=== PATIENT | female | born 1990 | race Caucasian/White ===

== ENCOUNTER 2017-03-03 10:00 | Emergency (ER) | payer OTHER ==
[2017-03-03 10:05] VITALS: BP 116/70; PULSE 63; RESP 18; TEMP 97.9
--- NOTE | 2017-03-03 10:46 | ED ---
General Adult HPI - General Chief complaint: Back Pain/Injury Stated complaint: BACK PAIN, CHRONIC Time Seen by Provider: 03/03/17 10:20 Source: patient, RN notes reviewed Mode of arrival: ambulatory Limitations: no limitations - History of Present Illness Initial comments: Patient is a 26-year-old female who presents emergency room today with chief complaint of exacerbation of chronic low back pain. She does admit that she was playing soccer and also cut the grass a few days ago. She states she is unsure if this causing exacerbation. She states she feels pain in her lower back both on left right sides. Does admit to some pain that radiates down the right leg. Denies any bowel or bladder incontinence or retention. Denies any saddle anesthesia. Denies any other complaints associated symptoms. Patient denies any recent fever, chills, shortness of breath, chest pain,abdominal pain , nausea or vomiting, dysuria or hematuria, constipation or diarrhea, headaches or visual changes, or any other complaints. - Related Data Home Medications Medication Instructions Recorded Confirmed Albuterol Inhaler [Ventolin Hfa 2 puff INHALATION QID 08/24/16 08/24/16 Inhaler] Albuterol Nebulized [Ventolin 1 unit INHALATION DIRECTED 08/24/16 08/24/16 Nebulized] Previous Rx's Medication Instructions Recorded HYDROcodone/APAP 5-325MG [Alexander 1 tab PO Q6HR #20 tab 10/04/16 5-325] methylPREDNISolone [Medrol Dose 4 mg PO DIRECTED #1 pack 10/04/16 Pack] Azithromycin [Zithromax Z-pack] 250 mg PO DIRECTED #6 tab 10/21/16 predniSONE 20 mg PO DAILY #3 tab 10/21/16 Cyclobenzaprine [Flexeril] 10 mg PO TID #20 tab 03/03/17 Allergies Allergy/AdvReac Type Severity Reaction Status Date / Time No Known Allergies Allergy Verified 03/03/17 10:05 Review of Systems ROS Statement: Those systems with pertinent positive or pertinent negative responses have been documented in the HPI. ROS Other: All systems not noted in ROS Statement are negative. Past Medical History Past Medical History: Asthma Additional Past Medical History / Comment(s): chronic back pain History of Any Multi-Drug Resistant Organisms: None Reported Past Surgical History: No Surgical Hx Reported Additional Past Surgical History / Comment(s): wisdom teeth Past Psychological History: ADD/ADHD Smoking Status: Current every day smoker Past Alcohol Use History: Occasional Past Drug Use History: None Reported General Exam - General Exam Comments Initial Comments: General: The patient is awake and alert, in no distress, and does not appear acutely ill. Eye: Pupils are equal, round and reactive to light, extra-ocular movements are intact. No nystagmus. There is normal conjunctiva bilaterally. No signs of icterus. Ears, nose, mouth and throat: There are moist mucous membranes and no oral lesions. Neck: The neck is supple, there is no tenderness or JVD. Cardiovascular: There is a regular rate and rhythm. No murmur, rub or gallop is appreciated. Respiratory: Lungs are clear to auscultation, respirations are non-labored, breath sounds are equal. No wheezes, stridor, rales, or rhonchi. Musculoskeletal: He has a normal appearance of the thoracic, lumbar spine. Patient does have tenderness lower lumbar L4-L5. Increased paravertebral tenderness on left and right of the lower lumbar. Strength 5/5. Sensation intact. Pulses equal bilaterally 2+. Neurological: A&O x 3. CN II-XII intact, There are no obvious motor or sensory deficits. Coordination appears grossly intact. Speech is normal. Skin: Skin is warm and dry and no rashes or lesions are noted. Psychiatric: Cooperative, appropriate mood & affect, normal judgment. Limitations: no limitations Course Vital Signs 03/03/17 10:02 Temperature 97.9 F Pulse Rate 63 Respiratory 18 Rate Blood Pressure 116/70 O2 Sat by Pulse 100 Oximetry Medical Decision Making - Medical Decision Making Patient will be treated with anti-inflammatories and muscle relaxant. Patient advised to follow-up family doctor return if symptoms increase or worsen or for any other concerns. Disposition Clinical Impression: Acute exacerbation of chronic low back pain Disposition: HOME SELF-CARE Condition: Good Instructions: Chronic Back Pain (ED) Additional Instructions: Please use medication as discussed. Please follow-up with family doctor in the next 2 days of symptoms have not improved. Please return to emergency room if the symptoms increase or worsen or for any other concerns. Prescriptions: Cyclobenzaprine [Flexeril] 10 mg PO TID #20 tab Referrals: None,Stated [Primary Care Provider] - 1-2 days Derek Cho DO [STAFF PHYSICIAN] - 1-2 days Shukri Villanueva DO [Doctor of Osteopathic Medicine] - 1-2 days Time of Disposition: 10:45
== END 2017-03-03 10:56 | disposition home or self-care (01) ==
LOC: EC 10:00
DX: G89.29 Other chronic pain (principal); M54.5 Low back pain; J45.909 Unspecified asthma, uncomplicated; F17.200 Nicotine dependence, unspecified, uncomplicated; Z79.899 Other long term (current) drug therapy
CPT/HCPCS: 99283

== ENCOUNTER 2017-08-21 11:18 | Emergency (ER) | payer OTHER ==
[2017-08-21 11:41] VITALS: BP 116/72; RESP 18; TEMP 99.4
[2017-08-21] MEDS ORDERED: IPRATROPIUM-ALBUTEROL 3 ML NEB INHALATION STA (11:56)
--- NOTE | 2017-08-21 11:58 | ED ---
URI HPI - General Chief Complaint: Upper Respiratory Infection Stated Complaint: bronchitis Time Seen by Provider: 08/21/17 11:41 Source: patient, RN notes reviewed Mode of arrival: ambulatory Limitations: no limitations - History of Present Illness Initial Comments: 27-year-old female presents emergency Department chief complaint of cough congestion as for 5 days. Patient states cough is productive at time. Patient states she has been wheezing. Patient has a history of asthma. Patient states that she does not have an inhaler or nebulizer currently. She states she is due for another nebulizer. Patient denies any fever or chills. Denies any nausea vomiting diarrhea constipation or diarrhea Patient states she does have slight running nose, sore throat and ear pain. - Related Data Home Medications Medication Instructions Recorded Confirmed Albuterol Inhaler [Ventolin Hfa 2 puff INHALATION RT-QID PRN 08/24/16 03/03/17 Inhaler] Albuterol Nebulized [Ventolin 2.5 unit INHALATION RT-QID PRN 08/24/16 03/03/17 Nebulized] Previous Rx's Medication Instructions Recorded Cyclobenzaprine [Flexeril] 10 mg PO TID #20 tab 03/03/17 Albuterol Nebulized [Ventolin 2.5 mg INHALATION Q4H PRN #25 nebu 08/21/17 Nebulized] Albuterol Sulfate [Proair Hfa] 1 - 2 puff INHALATION Q4HR PRN #1 08/21/17 inhaler Azithromycin [Zithromax Z-pack] 0 mg PO DIRECTED #1 pack 08/21/17 Allergies Allergy/AdvReac Type Severity Reaction Status Date / Time No Known Allergies Allergy Verified 03/03/17 10:05 Review of Systems ROS Statement: Those systems with pertinent positive or pertinent negative responses have been documented in the HPI. ROS Other: All systems not noted in ROS Statement are negative. Past Medical History Past Medical History: Asthma Additional Past Medical History / Comment(s): chronic back pain History of Any Multi-Drug Resistant Organisms: None Reported Past Surgical History: No Surgical Hx Reported Additional Past Surgical History / Comment(s): wisdom teeth Past Psychological History: ADD/ADHD Smoking Status: Current every day smoker Past Alcohol Use History: Occasional Past Drug Use History: None Reported General Exam Limitations: no limitations General appearance: alert, in no apparent distress Head exam: Present: atraumatic, normocephalic, normal inspection Eye exam: Present: normal appearance, PERRL, EOMI. Absent: scleral icterus, conjunctival injection, periorbital swelling ENT exam: Present: normal exam, normal oropharynx, mucous membranes moist, TM's normal bilaterally, normal external ear exam Neck exam: Present: normal inspection, full ROM. Absent: tenderness, meningismus, lymphadenopathy Respiratory exam: Present: wheezes. Absent: normal lung sounds bilaterally, respiratory distress, rales, rhonchi, stridor Cardiovascular Exam: Present: regular rate, normal rhythm, normal heart sounds. Absent: systolic murmur, diastolic murmur, rubs, gallop, clicks Neurological exam: Present: alert, oriented X3, CN II-XII intact, reflexes normal. Absent: motor sensory deficit Skin exam: Present: warm, dry, intact, normal color. Absent: rash Course Vital Signs 08/21/17 11:38 Temperature 99.4 F Pulse Rate 67 Respiratory 18 Rate Blood Pressure 116/72 O2 Sat by Pulse 100 Oximetry Medical Decision Making - Medical Decision Making 27-year-old female presents for cough congestion. Patient's x-ray does not show an acute abnormality. Patient's history asthma. 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 Patient will be given albuterol. Patient will be advised follow-up with PCP and return parameters were discussed. Disposition Clinical Impression: Asthmatic bronchitis Disposition: HOME SELF-CARE Condition: Stable Instructions: Upper Respiratory Infection (ED) Additional Instructions: Please return to the Emergency Department if symptoms worsen or any other concerns. Prescriptions: Albuterol Nebulized [Ventolin Nebulized] 2.5 mg INHALATION Q4H PRN #25 nebu PRN Reason: difficulty in breathing Albuterol Sulfate [Proair Hfa] 1 - 2 puff INHALATION Q4HR PRN #1 inhaler PRN Reason: difficulty in breathing Azithromycin [Zithromax Z-pack] 0 mg PO DIRECTED #1 pack Referrals: None,Stated [Primary Care Provider] - 1-2 days Uzma Henderson MD [STAFF PHYSICIAN] - 1-2 days Time of Disposition: 12:19
--- NOTE | 2017-08-21 12:16 | XR ---
EXAMINATION TYPE: XR chest 2V DATE OF EXAM: 08/21/2017 COMPARISON: Prior chest x-ray 08/24/2016 HISTORY: Cough and pain TECHNIQUE: Frontal and lateral views of the chest are obtained. FINDINGS: There is no focal air space opacity, pleural effusion, or pneumothorax seen. The cardiac silhouette size is within normal limits. The osseous structures are intact. IMPRESSION: No acute cardiopulmonary process.
[2017-08-21 12:38] VITALS: PULSE 68
== END 2017-08-21 12:46 | disposition home or self-care (01) ==
LOC: EC 11:18
DX: J45.909 Unspecified asthma, uncomplicated (principal); F17.200 Nicotine dependence, unspecified, uncomplicated
CPT/HCPCS: 71020; 94640; 99283

== ENCOUNTER → 2018-01-21 | Outpatient (CLI) | payer OTHER ==
--- NOTE | 2018-01-21 10:16 | MR ---
EXAMINATION TYPE: MR lumbar spine wo con DATE OF EXAM: 01/21/2018 COMPARISON: 10/04/2016 HISTORY: Radiculopathy, lumbar region TECHNIQUE: Multiplanar, multisequence images of the lumbar spine were acquired. FINDINGS: There is redemonstration of a grade 4 anterolisthesis of L5 on S1 with resultant disc uncov ering and type II Modic changes throughout the L5 vertebrae and S1 endplate. Disc desiccation is also seen at L4-L5 and T12-L1 with small Schmorl's node of the superior endplate of L1. T2 and T1 hyperin tense probable vertebral body hemangioma seen of the posterior aspect of the superior endplate of L4. Remaining bone marrow signal is unremarkable. Remainder of the lumbar vertebral body heights maintai n alignment. Vertebral body heights are maintained. T12-L1: There is disc desiccation and a small broad-based disc bulge without significant neural dov inal narrowing or spinal canal stenosis. L1-L2: Normal disc appearance without desiccation. No herniation, protrusion or disc bulging. No ca nal stenosis is present. Foramina are patent bilaterally. L2-L3: Normal disc appearance without desiccation. No herniation, protrusion or disc bulging. No ca nal stenosis is present. Foramina are patent bilaterally. L3-L4: There is flattening of the disc usual concavity posteriorly representing a small broad-based d isc bulge. No spinal canal stenosis or neural foraminal narrowing. L4-L5: Focal central disc herniation is small superimposed upon a broad-based disc bulge with central annular tear and disc desiccation. Facet arthropathy is also seen at this level without spinal canal stenosis or neuroforaminal narrowing. L5-S1: There is widening of the spinal canal in anterior posterior direction due to the extensive gra de 4 anterolisthesis of L5 on S1. Disc uncovering is again seen with right lateral disc herniation. N eural foramen display severe stenosis due to the anterolisthesis. IMPRESSION: 1. Grade 4 anterolisthesis of L5 on S1 resulting in disc uncovering, a right lateral disc herniation, and severe neural foraminal stenosis impinging on the L5 nerve roots. 2. Small focal disc herniation at L4-L5 without significant spinal canal stenosis or neural foraminal narrowing. 3. Degenerative disc disease resulting in small broad-based disc bulges at T12-L1 and L3-L4 without f ocal herniation, spinal canal stenosis or neural foraminal narrowing.
== END | disposition home or self-care (01) ==
LOC: RADMRIMAIN 09:05
PROVIDERS: ATTEND Family Medicine
DX: M43.17 Spondylolisthesis, lumbosacral region (principal); M51.15 Intervertebral disc disorders with radiculopathy, thoracolumbar region; M99.73 Connective tissue and disc stenosis of intervertebral foramina of lumbar region
CPT/HCPCS: 72148

== ENCOUNTER 2018-08-01 12:56 | Emergency (ER) | payer OTHER ==
[2018-08-01 12:59] VITALS: BP 121/79; PULSE 68; RESP 20; TEMP 97.9
[2018-08-01] MEDS ORDERED: HYDROcodone/APAP 5-325MG 1 EACH TAB PO STA (13:34)
--- NOTE | 2018-08-01 13:45 | ED ---
Back Pain HPI - General Chief Complaint: Back Pain/Injury Stated Complaint: Lumbar Pain Time Seen by Provider: 08/01/18 13:17 Source: patient Limitations: no limitations - History of Present Illness Initial Comments: This a 28-year-old female with past medical history of chronic low back pain with spondylolisthesis of L5-S1 who follows Dr. Crowe. Patient has a scheduled appointment for discussion of surgery 08/10/2018 patient presents today for chief complaint of low back pain 1 day. Patient states that she woke up this morning with increased low back pain from her baseline. Patient states that feels like her chronic low back pain is localized to the lumbar spine that increases when sitting in chair and relieved with bending forward. However is just increased from her baseline and she has no pain medications at home. Pt neither extremity weakness, loss sensation of the lower extremities or the inner thighs, loss of bowel bladder control, urinary retention, fever, chills, night sweats, recent weight loss or IV drug use, or recent trauma/fall to the lumbar spine. Patient states that she has taken ibuprofen for pain, and that [employer] has worked in the past. Remainder of our was negative. Upon arrival patient's vital signs stable patient appears comfortable, ambulating without difficulty. - Related Data Previous Rx's Medication Instructions Recorded Albuterol Nebulized [Ventolin 2.5 mg INHALATION Q4H PRN #25 nebu 08/21/17 Nebulized] Albuterol Sulfate [Proair Hfa] 1 - 2 puff INHALATION Q4HR PRN #1 08/21/17 inhaler Azithromycin [Zithromax Z-pack] 0 mg PO DIRECTED #1 pack 08/21/17 Ibuprofen [Motrin] 800 mg PO Q8H PRN 7 Days #21 tab 08/01/18 Allergies Allergy/AdvReac Type Severity Reaction Status Date / Time No Known Allergies Allergy Verified 08/01/18 12:59 Review of Systems ROS Statement: Those systems with pertinent positive or pertinent negative responses have been documented in the HPI. ROS Other: All systems not noted in ROS Statement are negative. Constitutional: Denies: fever, chills, night sweats Eyes: Denies: vision change ENT: Denies: ear pain, throat pain Respiratory: Denies: cough, dyspnea, wheezes, hemoptysis, stridor Cardiovascular: Denies: chest pain, palpitations Gastrointestinal: Denies: abdominal pain, nausea, vomiting, diarrhea, constipation, hematemesis, melena Genitourinary: Denies: urgency, dysuria, frequency, hematuria Musculoskeletal: Reports: back pain. Denies: joint swelling, arthralgia Skin: Denies: rash, lesions Neurological: Denies: headache, weakness, numbness, paresthesias, confusion Past Medical History Past Medical History: Asthma Additional Past Medical History / Comment(s): chronic back pain History of Any Multi-Drug Resistant Organisms: None Reported Past Surgical History: No Surgical Hx Reported Additional Past Surgical History / Comment(s): wisdom teeth Past Psychological History: ADD/ADHD Smoking Status: Current every day smoker Past Alcohol Use History: Occasional Past Drug Use History: None Reported General Exam - General Exam Comments Initial Comments: General: The patient is awake and alert, in no distress, and does not appear acutely ill. Eye: Pupils are equal, round and reactive to light, extra-ocular movements are intact. No nystagmus. There is normal conjunctiva. No signs of icterus. Ears, nose, mouth and throat: There are moist mucous membranes and no oral lesions. Neck: The neck is supple, there is no tenderness or JVD. Cardiovascular: There is a regular rate and rhythm. No murmur, rub or gallop is appreciated. Respiratory: Lungs are clear to auscultation, respirations are non-labored, breath sounds are equal. No wheezes, stridor, rales, or rhonchi. Abdomen is ALLERGY related and she is normal feeling after getting the world's sign there is normal. Axillary she's been Abdomen Musculoskeletal: Full ROM of the lumbar spine with for flexion, hyperextension , lateral flexion and rotation, patient admits to increased pain with range of motion with hyperextension. Strength 5/5 at the hip, knees and ankles b/l. Sensation intact of the LE equally b/l including no saddle paresthesias. +2/5 DTR no myoclonus or fasiculations. DP pulses equal bilaterally 2+. Pt admits to pain midline to palpation of the lumbar spine as well as paravertebral tenderness to palpation. Pt can heel and toe walk without difficulty. (-) SLR b/ l Neurological: A&O x 3. CN II-XII intact, There are no obvious motor or sensory deficits. Coordination appears grossly intact. Speech is normal. Skin: Skin is warm and dry and no rashes or lesions are noted. Psychiatric: Cooperative, appropriate mood & affect, normal judgment. Limitations: no limitations Course Vital Signs 08/01/18 12:58 Temperature 97.9 F Pulse Rate 68 Respiratory 20 Rate Blood Pressure 121/79 O2 Sat by Pulse 100 Oximetry Medical Decision Making - Medical Decision Making Pt had ride home, given [place] for pain mgmt. Pt denies trauma to the back and states that there is midline tenderness to palpation of the lumbar spine however this her usual place for pain no change in characteristic to palpation. She neurovascularly intact. No signs of cauda equina. No alarming feature of the low back pain. Pt to heel and toe walk without difficulty. Case discussed with Dr. Knight. Pt given RX for ibuprofen 800mg for pain mgmt and instruction to return for alarm symptoms which were discussed. At this time I feel pt has exacerbation of her chronic low back pain and is stable for d/c. Disposition Clinical Impression: Acute exacerbation of chronic low back pain Disposition: HOME SELF-CARE Condition: Good Instructions: Acute Low Back Pain (ED), Chronic Back Pain (ED) Additional Instructions: Please use medication as discussed. Please follow-up with Dr. Crowe in the next week. Please return to emergency room if the symptoms increase or worsen or for any other concerns,as discussed. Prescriptions: Ibuprofen [Motrin] 800 mg PO Q8H PRN 7 Days #21 tab PRN Reason: Pain Is patient prescribed a controlled substance at d/c from ED?: No Referrals: Kartik Ratliff PAC [Primary Care Provider] - 1-2 days Shukri Villanueva DO [Doctor of Osteopathic Medicine] - 1-2 days Time of Disposition: 13:44
== END 2018-08-01 14:03 | disposition home or self-care (01) ==
LOC: EC 12:56
DX: M54.5 Low back pain (principal); G89.29 Other chronic pain; F17.200 Nicotine dependence, unspecified, uncomplicated; Z87.39 Personal history of other diseases of the musculoskeletal system and connective tissue
CPT/HCPCS: 99283

== ENCOUNTER → 2018-08-28 | Outpatient (CLI) | payer OTHER | END | disposition home or self-care (01) | LOC: LABPAT 11:56 | PROVIDERS: ATTEND Orthopaedic Surgery Orthopaedic Surgery of the Spine | DX: Z01.812 Encounter for preprocedural laboratory examination (principal) | CPT/HCPCS: 87070 ==

== ENCOUNTER 2018-09-14 11:06 | Inpatient (IN) | payer OTHER ==
[2018-09-03 13:40] VITALS: BMI 25.2
[~2018-09-14 11:06] MED LIST: BACITRACIN 50,000 UNIT, POLYMYXIN B 500,000 UNIT in SODIUM CHLORIDE 0.9% IRRIGATIO 1,00... IRRIGATION ONE; HYDROmorphone 1 MG/ML 1 ML SYRINGE IVP PRN; LIDOCAINE 1% 20 ML VIAL (10MG/ML) FOR IV START INTRADERMA PRN; ONDANSETRON 4 MG/2 ML VIAL IVP ONE; ceFAZolin IN SWFI 2 GM/20 ML SYRINGE IVP ONE
[2018-09-14] MEDS: LACTATED RINGERS 1,000 ML IV SCH ×2 (11:31→21:06)
[2018-09-14] MEDS ORDERED: ROCURONIUM BROMIDE 10 MG/ML 10 ML VIAL IV ONE (13:19)
[2018-09-14] MEDS ORDERED: SUCCINYLCHOLINE CHLORIDE 100 MG/5 ML SYR IV ONE (13:19)
[2018-09-14] MEDS ORDERED: MIDAZOLAM 2 MG/2 ML VIAL ONE (13:19)
[2018-09-14] MEDS ORDERED: PHENYLEPHRINE-0.9% NACL SYG 1 MG/10 ML SYRINGE ONE (13:19)
[2018-09-14] MEDS ORDERED: GLYCOPYRROLATE 0.2 MG/ML 2 ML VIAL ONE (13:19)
[2018-09-14] MEDS ORDERED: SODIUM CHLORIDE 0.9% IRRIG 1,000 ML BTL IRRIGATION ONE (13:19)
[2018-09-14] MEDS ORDERED: PROPOFOL 10 MG/ML 20 ML VIAL IV ONE (13:19)
[2018-09-14] MEDS ORDERED: LIDOCAINE 1% INJ 10MG/ML (20 ML MDV) ONE (13:19)
[2018-09-14] MEDS ORDERED: fentaNYL (PF) 50 MCG/ML 2 ML AMP ONE (13:19)
[2018-09-14] MEDS ORDERED: HEPARIN SODIUM,PORCINE 10,000 UNIT/ML 1 ML VIAL ONE (13:19)
[2018-09-14] MEDS ORDERED: BUPIVACAINE-EPI 0.5%-1:200,000 10 ML VIAL SQ ONE (13:55)
[2018-09-14] MEDS ORDERED: THROMBIN (BOVINE) 5,000 UNIT VIAL MISCELLANE ONE (14:00)
[2018-09-14] MEDS ORDERED: GELATIN SPONGE,ABSORB (LARGE) 1 EACH SPONGE MISCELLANE ONE (14:00)
[2018-09-14] MEDS ORDERED: LACTATED RINGERS 1,000 ML IV ONE (14:59)
--- NOTE | 2018-09-14 16:35 | XR ---
Lumbar spine HISTORY: Needle placement Single lateral lumbar spine submitted and correlated to plain film 10/04/2016 There is a metallic probe superimposed over the L4 vertebral body posterior elements, again there is the listhesis at L5-S1 disc space, second probe is overlying the S1 vertebral body. IMPRESSION: Orthopedic localization.
--- NOTE | 2018-09-14 17:09 | XR ---
EXAMINATION TYPE: XR lumbar spine 2 or 3V DATE OF EXAM: 09/14/2018 COMPARISON: 10/04/2016 HISTORY: Surgery TECHNIQUE: 2 views FINDINGS: There is placement of rods and screws fusing posteriorly the lumbar spine at L4-S1. There i s a third-degree L5-S1 spondylolisthesis. There is no change in position of the lumbosacral junction compared to old exam. IMPRESSION: No complicating process seen.
--- NOTE | 2018-09-14 17:09 | P.OP ---
Date of Procedure: 09/14/18 Preoperative Diagnosis: Grade 4 spondylo-listhesis, vertebral body deformity L5 and S1, low back pain, degenerative disc disease, spondylolysis L5, there extremity radiculopathy Postoperative Diagnosis: Same Anesthesia: GETA Pathology: none sent Condition: stable Disposition: PACU Description of Procedure: BRIEF OPERATIVE NOTE Preoperative Diagnosis:Grade 4 spondylo-listhesis, vertebral body deformity L5 and S1, retrolisthesis L4 5 low back pain, degenerative disc disease L4 5 L5-S1 , spondylolysis L5, lower extremity radiculopathy, increased to be of difficulty due to the high-grade listhesis at L5-S1 Postoperative Diagnosis: Same Procedure: Laminectomy and decompression L4 5 L5-S1 Posterior lateral decompression and fusion L4 5 L5-S1 Local autogenous bone grafting harvesting of bone marrow aspirate via the pedicle of L4 on the right Use of Cell Saver Use of bone graft extenders Use of neuro monitoring Surgeon: Dr. Villanueva Pilates Instructor: Garcia Rose is present throughout the entire the case persistence during positioning, dissection, exposure, visualization, and all crucial elements of the case as well as closure. Anesthesia: General anesthesia per Dr. Yoder Estimated blood loss: approximately 150 mL with 69 mL given back through Cell Saver Complications: None apparent Components implanted: K2M Solera pedicle screw system with accommodation of 6.5 and 7.5 mm screws varying lengths from 35-45 mm in length and 250 mm rods with Screws Disposition: To recovery room in good stable condition. OPERATIVE INDICATIONS The patient has had long-standing issues in their lower back and lower extremities. her primary issues were in her back where she was having worsening pain at her lower back and feelings of instability its deep soreness. She was found have a significant step-off at her lower back and evidence of a grade 4 spondylolisthesis at L5-S1 with retrolisthesis at L4 5. She had near spondyloptosis. She has complete disc height loss at L5-S1 with doming of the S1 vertebrae superiorly and a high-speed angle. She is having worsening back pain despite conservative care. The patient has been through conservative treatment. We discussed various treatment options including surgery, and the patient wishes to proceed with surgery We discussed the risk, patient's alternatives and benefits of surgery including but not limited to, risk of bleeding risk of infection, risk of need for further surgery, risk of decreased , loss of motion, muscle function, malunion nonunion, hardware failure, nerve damage, paralysis, heart attack, blindness and . OPERATIVE SUMMARY After discussing all the risks, patient alternatives and benefits at length, the patient elected to proceed with surgical intervention, signed informed consent, and presented for their procedure. The patient was seen and examined in the preoperative holding area and the surgical site was marked. The patient was given antibiotics and brought to the operating room. The patient was sedated and intubated by anesthesia in standard fashion. The patient was positioned on to the operating room table in a prone position on the appropriate frame which was well-padded and well molded. We were careful to pad any bony prominences and pressure points. We were careful to maintain the patient's cervical spine and good neutral alignment and position throughout. The patient was prepped and draped in a normal standard fashion. An appropriate timeout and keystone protocol performed. We were able to proceed with the surgery. The local wound area was infiltrated with local anesthetic. An incision was made at the midline longitudinally over the appropriate levels From L4 to S1. Dissection was taken down subcutaneously to the level of the fascia which was split midline. Dissection was taken over the lamina bilaterally over the facet joints and to the transverse processes. it was obvious to palpate the step-off between L5-S1 and the very prominent spinous process of L5. There is obvious motion at L5 lamina. There is a large listhesis which had very little mobility at L5-S1. The L5 vertebral body was almost directly anterior to the S1 vertebral body due to the slip and it was taking extra time for meticulous dissection to expose the facet joint and the pedicle and transverse processes as well. Intraoperative x-ray was taken which showed a marker at the appropriate level With markers at L4 and S1. With the appropriate level positively confirmed, we were able to proceed with placement of the pedicle holes and screws. The patient had all their twitches back. The wound was copiously irrigated and suctioned dry as had been done periodically throughout the case. Screw holes were established similarly at each level. A sharp awl was used to establish the starting hole. It was palpated and found to have good for olvera and good base. A monitored Steffee probe was used to establish the pedicle hole. It was positioned so there was no stimulation at 12 mA. The hole was palpated and found to have good for olvera and a good base. The hole was tapped with the appropriate sized tap. is very difficult to ascertain the appropriate starting point and angle for the S1 and L5 pedicles in particular. I was able get excellent alignment and position. The transverse process or sacral ala was decorticated with a high-speed bur. I was able to use these holes to place the appropriate size screw and good alignment and good position with good bony purchase. When the screws were inserted there were stimulated, and found to have no stimulation at 20 mA. I was able to turn my attention to the decompression decompression was performed with a combination of rongeurs, curettes, Kerrison rongeurs and a ball -tip feeler. All of the bone that was removed was stripped and morcellized for use as autogenous bone graft later in the case. I was able to obtain good central decompression as well as wide bilateral foraminal decompression At L4 5 and L5-S1. There is no evidence of dural tear or leak. Good hemostasis was maintained. The wound was irrigated and suctioned dry. There isfor a T lift at L5 and I did not feel with the tall disc I did not feel that we should perform a TLIF at L45. We had very good pedicle screw fixation at L4 5 and S1 bilaterally and felt we can get good posterior lateral fusion with our fixation. With the hardware intact, intraoperative x-ray was again taken which showed good alignment and position of the hardware at the appropriate levels At L4 5 and S1. We were then able to measure, contour and place the rods and appropriate hardware bilaterally. the rods had to be bent significantly order to accommodate the listhesis though we were able to get some reduction back at L5-S1 and L4 5 with the sheeba placement and tightening of the Screws. I was able to place capcrews, tighten them down, and torque them off appropriately. With this intact I was able to place the local autogenousne graft with additional bone graft enhancer as necessary into the posterior lateral gutters bilaterally. With the bone graft intact, a stable construct, and good decompression at the appropriate levels, we were able to proceed with closure. Good hemostasis was maintained. There is no evidence of dural tear or leak. The fascia was closed for a watertight closure. The subcutaneous tissue was closed over a superficial drain. The subcuticular tissue was closed with absorbable suture. The wound was cleaned and dried and dressed with the appropriate dressing. The drapes were broken down. The patient was gently rolled back onto their hospital bed being careful to maintain their cervical spine and good neutral alignment and position. They were woken up by anesthesia , extubated, and brought to the recovery room in good stable condition. The patient will be admitted to the hospital for appropriate postoperative care , medical management and monitoring. We will continue to follow them closely about the postoperative course.
[2018-09-14] MEDS ORDERED: MAGNESIUM HYDROXIDE 2,400 MG/10 ML CUP PO PRN (17:10)
[2018-09-14] MEDS ORDERED: ONDANSETRON 4 MG/2 ML VIAL IVP PRN (17:10)
[2018-09-14] MEDS ORDERED: HYDROcodone/APAP 5-325MG 1 EACH TAB PO PRN (17:10)
[2018-09-14] MEDS ORDERED: BENZOCAINE/MENTHOL LOZENG 1 EACH LOZENGE MUCOUS MEM PRN (17:10)
[2018-09-14] MEDS ORDERED: HYDROmorphone 1 MG/ML 1 ML SYRINGE IVP PRN (17:10)
[2018-09-14] MEDS ORDERED: ALBUTEROL NEBULIZED 2.5 MG/3 ML INHALATION PRN ×2 (17:12)
[2018-09-14] MEDS: MEPERIDINE 50 MG/ML SYRINGE IVP ONE ×4 (17:35→17:51)
[2018-09-14] MEDS ORDERED: KETOROLAC 30 MG/ML 1 ML VIAL IVP ONE (17:53)
[2018-09-14] MEDS: SODIUM CHLORIDE 0.9% 1,000 ML IV SCH (21:07)
[2018-09-14] MEDS: ceFAZolin IN SWFI 2 GM/20 ML SYRINGE IVP SCH (21:08)
[2018-09-14] MEDS: HYDROmorphone 1 MG/ML 1 ML SYRINGE IVP PRN (22:27)
[2018-09-15] MEDS: LACTATED RINGERS 1,000 ML IV SCH ×2 (02:14)
[2018-09-15] MEDS: HYDROmorphone 1 MG/ML 1 ML SYRINGE IVP PRN ×3 (04:48→20:46)
[2018-09-15] MEDS: ceFAZolin IN SWFI 2 GM/20 ML SYRINGE IVP SCH (05:06)
[2018-09-15] MEDS: HYDROcodone/APAP 5-325MG 1 EACH TAB PO PRN ×3 (07:40→16:07)
[2018-09-15] MEDS: SODIUM CHLORIDE 0.9% 1,000 ML IV SCH ×2 (07:40→20:21)
[2018-09-15] MEDS: VARENICLINE 1 MG TAB PO SCH (09:40)
[2018-09-15] MEDS: SENNOSIDES-DOCUSATE SODIUM 1 EACH TAB PO SCH (09:41)
--- NOTE | 2018-09-15 12:23 | P.PN ---
Progress Note - Text Progress Note Date: 09/15/18 Orthopedic Spine Patient is a pleasant 28-year-old female who is seen and examined at the bedside following posterior lateral decompression and fusion performed yesterday. Patient states they are doing well postsurgically. Currently does not complain of nausea, vomiting, fever, or chills. Patient states pain has been adequately controlled. Patient is eating and voiding freely without difficulty. She has been able to ambulate to the restroom. Therapy has worked with her today. She did have some exacerbation of back pain with therapy after she states her shoulders were pushed down a little bit causing some increased pressure on her spine. Her exacerbation of pain has resolved. She is not currently complaining of significant lower extremity radiculopathy or weakness bilaterally. She is happy with her progress postoperatively. Physical Exam Lumbar Fusion: Status post surgical day number 1 Patient is awake, alert, and oriented 3 Vital signs stable Good chest excursion with deep inspiration and expiration Abdomen soft nontender Dorsiflexion, plantarflexion, and extensor hallucis longus positive sustained bilaterally No signs or symptoms of DVT; no calf pain; pneumatic cuffs not currently intact bilateral lower extremities Dressing is clean, dry, and intact; no erythema, purulence, or signs of infection No significant pain with palpation over the surgical site Neurovascularly intact bilaterally lower extremities Assessment: L4-5 and L5-S1 Posterior lateral decompression and fusion Low back pain L5-S1 grade 4 spondylolisthesis and vertebral body deformity L5 spondylolysis Lumbar degenerative disc disease Plan: 1. Ambulate as tolerated; work with Physical Therapy to increase mobilization 2. Continue pain control with IV and oral medications; we will plan to wean off IV Dilaudid and we'll continue pain control with oral [place] in anticipation for discharge home as early as tomorrow, 09/15/2018 3. Dressing to remain intact; If the patient would like to shower today dressing may be changed to Telfa and Tegaderm and she may shower with a waterproof dressing intact 4. We will continue to follow the patient closely; if she continues to improve , we'll plan for discharge home as early as tomorrow, 09/16/2018 5. Patient can follow-up with Garcia Gilman PA-C or Dr. Osvaldo Villanueva at [facility] in 2-3 weeks following discharge
[2018-09-16] MEDS: HYDROmorphone 1 MG/ML 1 ML SYRINGE IVP PRN ×4 (00:17→23:01)
[2018-09-16] MEDS: HYDROcodone/APAP 5-325MG 1 EACH TAB PO PRN ×5 (01:13→21:40)
[2018-09-16] MEDS: LACTATED RINGERS 1,000 ML IV SCH ×2 (02:13)
[2018-09-16] MEDS: VARENICLINE 1 MG TAB PO SCH (08:06)
[2018-09-16] MEDS: SENNOSIDES-DOCUSATE SODIUM 1 EACH TAB PO SCH (08:09)
[2018-09-16] MEDS: SODIUM CHLORIDE 0.9% 1,000 ML IV SCH ×2 (08:28→22:49)
--- NOTE | 2018-09-16 13:18 | P.PN ---
Progress Note - Text Orthopedic Spine: Patient is a pleasant 28-year-old female who is seen and examined at the bedside following posterior lateral decompression and fusion performed Friday. Patient states they are doing well postsurgically. Currently does not complain of nausea, vomiting, fever, or chills. Patient states pain has been adequately controlled. Patient is eating and voiding freely without difficulty. She has been able to ambulate to the restroom. She has been able to increase ambulation since yesterday. She has noticed some tingling generalized by lower lower extremities during ambulation. She is happy with her progress postoperatively but feels she is moving a little bit slower today as compared to yesterday. She states case management discussed the possibility of a walker with her at discharge to aid in ambulation. Physical Exam Lumbar Fusion: Status post surgical day number 2 Patient is awake, alert, and oriented 3 Vital signs stable Good chest excursion with deep inspiration and expiration Abdomen soft nontender Dorsiflexion, plantarflexion, and extensor hallucis longus positive sustained bilaterally No signs or symptoms of DVT; no calf pain; pneumatic cuffs not currently intact bilateral lower extremities Dressing is clean, dry, and intact; no erythema, purulence, or signs of infection No significant pain with palpation over the surgical site Neurovascularly intact bilaterally lower extremities Assessment: L4-5 and L5-S1 Posterior lateral decompression and fusion Low back pain L5-S1 grade 4 spondylolisthesis and vertebral body deformity L5 spondylolysis Lumbar degenerative disc disease Plan: 1. Ambulate as tolerated; work with Physical Therapy to increase mobilization 2. Continue pain control with IV and oral medications; we will plan to wean off IV Dilaudid and we'll continue pain control with oral [place] in anticipation for discharge home as early as tomorrow, . MAPS is been reviewed today. An "Opiod Start Talking" form has been signed by the patient and myself and placed in the patient's chart. Prescription written for [place]ar[place] 5 mg/325 mg take 1-2 tabs every 6 hours as needed for pain, dispensed #56. 3. Dressing to remain intact; If the patient would like to shower today dressing may be changed to Telfa and Tegaderm and she may shower with a waterproof dressing intact 4. prescription has been written in place in the patient's chart for a walker at discharge. Case management has been contacted to obtain his walker. 5. We will continue to follow the patient closely; if she continues to improve , we'll plan for discharge home as early as tomorrow, 09/16/2018 6. Patient can follow-up with Garcia Gilman PA-C or Dr. Osvaldo Villanueva at [facility] in 2-3 weeks following discharge
[2018-09-17 00:51] VITALS: RESP 16
[2018-09-17] MEDS: HYDROcodone/APAP 5-325MG 1 EACH TAB PO PRN ×2 (02:56→08:06)
[2018-09-17] MEDS: LACTATED RINGERS 1,000 ML IV SCH ×2 (05:17)
[2018-09-17] MEDS: VARENICLINE 1 MG TAB PO SCH (08:06)
[2018-09-17] MEDS: SENNOSIDES-DOCUSATE SODIUM 1 EACH TAB PO SCH (08:07)
--- NOTE | 2018-09-17 08:15 | P.DS ---
Providers Date of admission: 09/14/18 11:06 Attending physician: Shukri Villanueva Primary care physician: Cynthia Márquez [facility] Course: The patient presented on the day of admission as per her operative note. She had a grade 4 spondylolisthesis at L5-S1 with retrolisthesis L4 5 with severe back pain and lower extremity radicular symptoms. She underwent her open decompression and fusion at L4-S1 as per her operative note. She feels she is doing well. Her mobilization has improved since her surgery. She says her legs are doing well. She has some tingling sensation over her left foot but her strength and neurologic status is intact. Physical Exam The incision site is clean dry and intact. There is no erythema . There is still some small bloody drainage at the wound site but it is slowing down quite well. There is no purulence no evidence of infection. Abdomen soft and nontender. Chest has good excursion with deep inspiration and expiration. The patient has active and passive range of motion intact at the upper and lower extremities. There is no acute change in neurologic status. She has sustained a/plantar flexion and EHL intact. Hospital Course Postoperative day #3 status post open decompression and fusion L4 to S1 for severe grade 4 spondylolisthesis and retrolisthesis with stenosis and low back pain and lower extremity radiculopathy which are improving with the surgery. The patient has been making good progress postoperatively. They have completed the prophylactic antibiotics without any signs or symptoms of infection. The patient has been able to advance their diet, and is tolerating diet adequately. The pain was initially controlled with IV medications and is now controlled appropriately with oral medications. The patient has been able to increase their mobilization. The patient has progressed appropriately. There is still some small bloody drainage at the wound site but this is slowing down nicely and should resolve quickly. I will syndrome with some prophylactic antibiotics and follow her closely. Next few days in the office to follow the wound. I think they are in good stable condition for discharge today. They will be sent home with appropriate prescriptions with pain medications antibiotics and a walker. I answered their questions to the best of my ability in a language that they can understand and they are agreeable with the plan. They will follow up as directed in approximately 1 week. Patient Condition at Discharge: Fair Plan - Discharge Summary Discharge Rx Participant: Yes New Discharge Prescriptions: New Hydrocodone/Acetaminophen [[place] 5-325] 1 - 2 each PO Q6HR PRN #56 tab PRN Reason: Pain No Action Ibuprofen [Motrin] 800 mg PO Q8H PRN 7 Days #21 tab PRN Reason: Pain Albuterol Nebulized [Ventolin Nebulized] 2.5 mg INHALATION QID PRN PRN Reason: Shortness Of Breath Albuterol Inhaler [Ventolin Hfa Inhaler] 1 - 2 puff INHALATION RT-Q6H PRN PRN Reason: Shortness Of Breath HYDROcodone/APAP 5-325MG [[place] 5-325] 1 tab PO Q8HR PRN PRN Reason: Pain Varenicline [Chantix Starter Pack] See Taper PO DIRECTED Discharge Medication List Ibuprofen [Motrin] 800 mg PO Q8H PRN 7 Days #21 tab 08/01/18 [Rx] Albuterol Inhaler [Ventolin Hfa Inhaler] 1 - 2 puff INHALATION RT-Q6H PRN [History] Albuterol Nebulized [Ventolin Nebulized] 2.5 mg INHALATION QID PRN 09/03/18 [ History] HYDROcodone/APAP 5-325MG [[place] 5-325] 1 tab PO Q8HR PRN 09/03/18 [History] Varenicline [Chantix Starter Pack] See Taper PO DIRECTED 09/14/18 [History] Hydrocodone/Acetaminophen [[place] 5-325] 1 - 2 each PO Q6HR PRN #56 tab 09/16/18 [Rx] Follow up Appointment(s)/Referral(s): Garcia Gilman, YIFAN [PHYSICIAN DUSTING AND BRUSHING MACHINE OPERATOR] - 2 Weeks (Patient may follow-up with Garcia Gilman PA-C or Dr. Osvaldo Villanueva at [facility] in 2-3 weeks following discharge. ) Activity/Diet/Wound Care/Special Instructions: 1. Patient may shower with Tegaderm dressing intact. 2. Patient may remove Tegaderm dressing in 3 days and shower without a dressing at that time. 3. Patient should keep Steri-Strips intact and allow them to fall off naturally. 4. Patient should refrain from driving until at least after their first follow- up appointment in the office. 5. Patient should avoid excessive bending, twisting, and lifting; no lifting greater than 10 pounds 6. Take medications as prescribed 7. Do not soak in tub 8. [facility] - [phone] - will deliver to bedside before discharge Discharge Disposition: HOME SELF-CARE
[2018-09-17 08:55] VITALS: BP 114/64; PULSE 92; TEMP 99.3
== END 2018-09-17 11:20 | disposition home or self-care (01) | DRG 460 ==
LOC: 2ORMAIN 11:06 → 4SSUR 16:58
PROVIDERS: ADMIT Orthopaedic Surgery Orthopaedic Surgery of the Spine; ATTEND Orthopaedic Surgery Orthopaedic Surgery of the Spine
PROC: 0SG3071 Fusion of Lumbosacral Joint with Autologous Tissue Substitute, Posterior Approach, Posterior Column, Open Approach (ICD-10-PCS; principal; 2018-09-14 13:00)
PROC: 4A11X4G Monitoring of Peripheral Nervous Electrical Activity, Intraoperative, External Approach (ICD-10-PCS; principal; 2018-09-14 13:00)
PROC: 30233N0 Transfusion of Autologous Red Blood Cells into Peripheral Vein, Percutaneous Approach (ICD-10-PCS; principal; 2018-09-14 13:00)
PROC: 07DS3ZZ Extraction of Vertebral Bone Marrow, Percutaneous Approach (ICD-10-PCS; principal; 2018-09-14 13:00)
PROC: 0SG0071 Fusion of Lumbar Vertebral Joint with Autologous Tissue Substitute, Posterior Approach, Posterior Column, Open Approach (ICD-10-PCS; principal; 2018-09-14 13:00)
DX: M43.16 Spondylolisthesis, lumbar region (principal); M43.17 Spondylolisthesis, lumbosacral region; M51.16 Intervertebral disc disorders with radiculopathy, lumbar region; Z79.891 Long term (current) use of opiate analgesic; Z79.899 Other long term (current) drug therapy; Z83.3 Family history of diabetes mellitus; Z72.0 Tobacco use
CPT/HCPCS: 72020; 72100; 81025; 86850; 86891; 86900; 86901

== ENCOUNTER → 2019-01-05 | Outpatient (CLI) | payer OTHER ==
--- NOTE | 2019-01-05 09:47 | MR ---
EXAMINATION TYPE: MR brain wo/w con DATE OF EXAM: 01/05/2019 COMPARISON: None HISTORY: Headache TECHNIQUE: Multiplanar, multisequence images of the brain and brainstem is performed without and with IV contras t, utilizing 7 mL intravenous Gadavist . FINDINGS: Diffusion weighted images demonstrate no evidence of a recent infarct or other diffusion ab normality. There is no extra-axial fluid collection or significant white matter signal abnormality. The ventricular system and cisternal spaces are normal in size and appearance. The brain volume is age appropriate. Cerebellar tonsils are low-lying measuring approximately 3-4 mm below the level of foramen magnum. Co rrelate for Chiari malformation. Changes of chronic sinusitis noted. Post contrast images demonstrate no abnormal enhancement. The dural venous sinuses appear patent. The visualized sinuses are clear an d the globes are intact. IMPRESSION: 1. Chiari I malformation 2. Changes of chronic sinusitis. 3. there is a trace amount of fluid surrounding both optic nerves which is a nonspecific finding can occasionally be seen with papilledema or benign increased intracranial pressure. Correlate clinically .
== END ==
LOC: RADMRIMAIN 07:59
PROVIDERS: ATTEND Family Medicine
DX: G93.5 Compression of brain (principal)
CPT/HCPCS: 70553; A9585

== ENCOUNTER → 2020-01-10 | Outpatient (CLI) | payer OTHER ==
--- NOTE | 2020-01-10 11:52 | MR ---
EXAMINATION TYPE: MR ankle RT wo con DATE OF EXAM: 01/10/2020 COMPARISON: None HISTORY: Rt ankle pain, swelling, clicking TECHNIQUE: Multiplanar, multisequence images of the right ankle were acquired without intravenous contrast. FINDINGS: The Achilles tendon and plantar fascia and in their visualized portions are unremarkable and intact. No significant tibiotalar joint effusion is seen. The sinus tarsus is unremarkable and fat-containing . There are few subchondral cysts of the calcaneus, typically degenerative and benign. These are well -circumscribed. There is no malalignment of the ankle joint. No significant osteophytic spurring of t he hindfoot are visualized midfoot. No bone marrow edema is seen. There is a short segment split tear of the peroneus brevis distal to the ankle joint. This is marked on axial T2 fat sat image 11. Total length measures approximately 1.8 cm. There is appropriate insert ion on the base of the fifth metatarsal. Peroneus longus is unremarkable. There is a small amount of fluid surrounding the flexor tendons however the flexor tendons appear int act. Extensor tendons in their visualized portions are unremarkable. The anterior talofibular ligament, posterior talofibular ligament, and deltoid ligaments are intact a nd unremarkable. The Lisfranc ligament also appears intact as does the spring ligament. IMPRESSION: 1. Short segment split tear below the ankle joint of the peroneus brevis. 2. Findings suggesting mild tenosynovitis of the flexor tendons including the tibialis posterior, fle xor digitorum longus, and flexor hallucis longus.
== END | disposition home or self-care (01) ==
LOC: RADMRIMAIN 10:44
PROVIDERS: ATTEND Orthopaedic Surgery
DX: S96.811A Strain of other specified muscles and tendons at ankle and foot level, right foot, initial encounter (principal)

== ENCOUNTER 2020-09-20 18:39 | Emergency (ER) | payer OTHER ==
[2020-09-20 18:48] VITALS: TEMP 99.1
[2020-09-20] MEDS ORDERED: diphenhydrAMINE 50 MG/ML 1 ML VIAL IVP STA (19:22)
[2020-09-20] MEDS ORDERED: ONDANSETRON 4 MG/2 ML VIAL IVP STA (19:22)
[2020-09-20] MEDS ORDERED: KETOROLAC 15 MG/ML 1 ML VIAL IVP STA (19:22)
[2020-09-20] MEDS ORDERED: SODIUM CHLORIDE 0.9% 1,000 ML IV STA (19:22)
[2020-09-20] MEDS ORDERED: ACET/COD 300 MG/30 MG STARTER PACK 6 TAB BTL PO STA (20:37)
--- NOTE | 2020-09-20 20:37 | ED ---
Neck Injury/Pain HPI - General Chief Complaint: Neck Pain/Injury Stated Complaint: neck/shoulder/arm pain Time Seen by Provider: 09/20/20 19:07 Mode of arrival: ambulatory Limitations: no limitations - History of Present Illness Initial Comments: Patient is a 30-year-old female presenting to emergency Department with complaints of right sided neck soreness as well as a migraine 3 days. Patient states she woke up and had some tightness in the right side of her neck and started giving her migraine. She states she does have history of migraines and did take her medication but is not helping. She states the migraine has progressively developed over the last 3 days and is not going away. She describes it as constant, right side of her head. She admits to some mild naus ea, no vomiting or diarrhea. She denies any fever, chills, cough, shortness of breath. She denies any injuries to her neck. She denies any previous surgeries to her cervical spine. She denies any blurry vision, lightheadedness. She has no further complaints at this time. Upon arrival to the ER her vitals are stable. - Related Data Home Medications Medication Instructions Recorded Confirmed Albuterol Inhaler (Mhu) [Ventolin 1 - 2 puff INHALATION RT-Q6H PRN 09/03/18 09/14/18 Hfa Inhaler] Albuterol Nebulized [Ventolin 2.5 mg INHALATION QID PRN 09/03/18 09/14/18 Nebulized] HYDROcodone/APAP 5-325MG [[place] 1 tab PO Q8HR PRN 09/03/18 09/14/18 5-325] Varenicline [Chantix Starter Pack] See Taper PO DIRECTED 09/14/18 09/14/18 Previous Rx's Medication Instructions Recorded Ibuprofen [Motrin] 800 mg PO Q8H PRN 7 Days #21 tab 08/01/18 Hydrocodone/Acetaminophen [[place] 1 - 2 each PO Q6HR PRN #56 tab 09/16/18 5-325] Cephalexin [Keflex] 500 mg PO Q6HR 3 Days #12 cap 09/17/18 Cyclobenzaprine [Flexeril] 5 mg PO BID #10 tablet 09/20/20 Allergies Allergy/AdvReac Type Severity Reaction Status Date / Time No Known Allergies Allergy Verified 09/20/20 18:48 Review of Systems ROS Statement: Those systems with pertinent positive or pertinent negative responses have been documented in the HPI. ROS Other: All systems not noted in ROS Statement are negative. Past Medical History Past Medical History: Asthma Additional Past Medical History / Comment(s): chronic back pain grade 4 slipped disc, , migraines, History of Any Multi-Drug Resistant Organisms: None Reported Past Surgical History: No Surgical Hx Reported Additional Past Surgical History / Comment(s): wisdom teeth, two rods in lower back with screws, Additional Past Anesthesia/Blood Transfusion Reaction / Comment(s): ONLY WISDOM TEETH REMOVED. Past Psychological History: ADD/ADHD Smoking Status: Current every day smoker Past Alcohol Use History: Occasional Past Drug Use History: None Reported - Past Family History Mother Family Medical History: Unable to Obtain General Exam - General Exam Comments Initial Comments: GENERAL: Patient is well-developed and well-nourished. Patient is nontoxic and in no acute distress. HEAD: Atraumatic, normocephalic. EYES: Pupils equal round and reactive to light, extraocular movements intact, sclera anicteric, conjunctiva are normal. Eyelids were unremarkable. ENT: TMs normal, nares patent, oropharynx clear without exudates. Moist mucous membranes. NECK: Mild soreness with palpation of the right cervical paraspinals, right upper trapezius muscle. She has full cervical range of motion. Supple without lymphadenopathy or JVD. LUNGS: Unlabored respirations. Breath sounds clear to auscultation bilaterally and equal. No wheezes rales or rhonchi. HEART: Regular rate and rhythm without murmurs, rubs or gallops. ABDOMEN: Soft, nontender, normoactive bowel sounds. No guarding, no rebound. No masses appreciated. : Deferred MUSCULOSKELETAL: Normal extremities with adequate strength and normal range of motion, no pitting or edema. No clubbing or cyanosis. [employer] strength equal bilateral. NEUROLOGICAL: Patient is alert and oriented x 3. Motor and sensory are also intact. Cranial nerves II through XII grossly intact. Symmetrical smile. Normal speech, normal gait. PSYCH: Normal mood, normal affect. SKIN: Warm, Dry, normal turgor, no rashes or lesions noted. Limitations: no limitations Course Vital Signs 09/20/20 18:45 Temperature 99.1 F Pulse Rate 75 Respiratory 18 Rate Blood Pressure 132/83 O2 Sat by Pulse 100 Oximetry Medical Decision Making - Medical Decision Making Patient is a 30-year-old female here for right-sided neck soreness as well as a migraine 3 days. There is been no injuries or trauma, no previous cervical surgeries. No neural deficits. She does have history of migraines. To give her some fluids, Toradol, Zofran and some Benadryl and she reports improvement in her symptoms. Her headache is currently 3/10. I discussed that her neck soreness related to muscle spasm. Recommended Tylenol or Motrin for discomfort, heat to the area, gentle stretching. She is stable for discharge. Return parameters were discussed with the patient she verbalized understanding. Disposition Clinical Impression: Strain of neck muscle, Headache Disposition: HOME SELF-CARE Condition: Stable Instructions (If sedation given, give patient instructions): Acute Headache (ED) Additional Instructions: Please return to the Emergency Department if symptoms worsen or any other concerns. Alternate between Tylenol and Motrin for discomfort. Apply heat, gentle stretching to the right neck. Prescriptions: Cyclobenzaprine [Flexeril] 5 mg PO BID #10 tablet Is patient prescribed a controlled substance at d/c from ED?: No Referrals: Philip Juan MD [Primary Care Provider] - 1-2 days
[2020-09-20 20:53] VITALS: BP 104/62; PULSE 56; RESP 16
== END 2020-09-20 20:53 | disposition home or self-care (01) ==
LOC: EC 18:39
DX: S16.1XXA Strain of muscle, fascia and tendon at neck level, initial encounter (principal); G43.909 Migraine, unspecified, not intractable, without status migrainosus; F17.200 Nicotine dependence, unspecified, uncomplicated; X58.XXXA Exposure to other specified factors, initial encounter
CPT/HCPCS: 99283; 96374; 96375 ×2; 96361; J1200; J2405; J1885

== ENCOUNTER → 2021-01-22 | Outpatient (CLI) | payer OTHER ==
--- NOTE | 2021-01-23 00:11 | MR ---
EXAMINATION TYPE: MR cervical spine wo con DATE OF EXAM: 01/22/2021 COMPARISON: None HISTORY: Neck in neck that travels up to head and down right arm for a few months. Neck pain FINDINGS: Cervical vertebra have normal alignment. Disc spaces are fairly normal. There are small posterior dis c bulges at C3-4 and C5-6 and C6-7. The cervical spinal cord has fairly normal signal pattern. There is no edema. Spinal canal measures 8.5 mm at C5-6 which is the narrowest point. There is no significa nt spinal stenosis. I see no bony destructive process. Facet joints are intact. Brainstem appears int act. IMPRESSION: Multiple small posterior disc bulging and herniation at C3-4 and C5-6 and C6-7. No spinal stenosis. N o fracture. C5-6 abnormality lateralizes slightly to the right side which could be clinically signifi cant in this patient with right side pain.
== END ==
LOC: RADMRIMAIN 18:33
PROVIDERS: ATTEND Orthopaedic Surgery Orthopaedic Surgery of the Spine
DX: M50.222 Other cervical disc displacement at C5-C6 level (principal); M50.223 Other cervical disc displacement at C6-C7 level
CPT/HCPCS: 72141

== ENCOUNTER 2021-07-08 18:36 | Emergency (ER) | payer OTHER ==
[2021-07-08 18:42] VITALS: RESP 18
[2021-07-08] MEDS ORDERED: Acetaminophen-Codeine 300-30mg TAB PO STA (19:11)
--- NOTE | 2021-07-08 19:43 | CT ---
EXAMINATION TYPE: CT mastoid wo con DATE OF EXAM: 07/08/2021 COMPARISON: None HISTORY: Right mastoid pain. CT DLP: 228.6 mGycm Automated exposure control for dose reduction was used. Images were obtained from the skull base to the upper temporal bones without contrast. There is normal aeration of the mastoid sinuses. External auditory canals appear fairly normal. There is normal aeration of the epitympanic recess bilaterally. The internal auditory canals appear normal . There is no evidence of cerebellopontine angle mass. The skull base is intact. IMPRESSION: Negative CT scan of the temporal bones.
--- NOTE | 2021-07-08 20:09 | ED ---
ENT HPI - General Chief complaint: ENT Stated complaint: R ear pain Time Seen by Provider: 07/08/21 18:55 Source: patient, RN notes reviewed Mode of arrival: ambulatory Limitations: no limitations - History of Present Illness Initial comments: Patient is a 31-year-old female that presents to the emergency department complaining of right ear pain. She notes that she tried washing it out with hydroperoxide warm water last night. She notes that this morning it still feels plugged up. She came in to get an evaluation for possible fluid behind the ear s. She was otherwise a well-appearing 31-year-old female. She did note that she does have some mastoid tenderness on the right side. She noted that she cannot take steroids due to her glaucoma. She denied any other issues or complaints this time. She denied any chest pain shortness of breath headache nausea vomiting diarrhea constipation fever fatigue chills. - Related Data Home Medications Medication Instructions Recorded Confirmed Albuterol Inhaler (Mhu) [Ventolin 1 - 2 puff INHALATION RT-Q6H PRN 09/03/18 09/14/18 Hfa Inhaler] Albuterol Nebulized [Ventolin 2.5 mg INHALATION QID PRN 09/03/18 09/14/18 Nebulized] HYDROcodone/APAP 5-325MG [[place] 1 tab PO Q8HR PRN 09/03/18 09/14/18 5-325] Varenicline [Chantix Starter Pack] See Taper PO DIRECTED 09/14/18 09/14/18 Previous Rx's Medication Instructions Recorded Ibuprofen [Motrin] 800 mg PO Q8H PRN 7 Days #21 tab 08/01/18 Hydrocodone/Acetaminophen [[place] 1 - 2 each PO Q6HR PRN #56 tab 09/16/18 5-325] Cephalexin [Keflex] 500 mg PO Q6HR 3 Days #12 cap 09/17/18 Cyclobenzaprine [Flexeril] 5 mg PO BID #10 tablet 09/20/20 Fluticasone Nasal [place] [Flonase 2 spr EA NOSTRIL DAILY #1 bottle 07/08/21 Nasal [place]] Loratadine [Alavert] 10 mg PO DAILY 30 Days #30 tab 07/08/21 Allergies Allergy/AdvReac Type Severity Reaction Status Date / Time No Known Allergies Allergy Verified 08/29/21 18:42 Review of Systems ROS Statement: Those systems with pertinent positive or pertinent negative responses have been documented in the HPI. ROS Other: All systems not noted in ROS Statement are negative. Past Medical History Past Medical History: Asthma Additional Past Medical History / Comment(s): chronic back pain grade 4 slipped disc, , migraines, History of Any Multi-Drug Resistant Organisms: None Reported Past Surgical History: No Surgical Hx Reported Additional Past Surgical History / Comment(s): wisdom teeth, two rods in lower back with screws, Additional Past Anesthesia/Blood Transfusion Reaction / Comment(s): ONLY WISDOM TEETH REMOVED. Past Psychological History: ADD/ADHD Smoking Status: Current every day smoker Past Alcohol Use History: Occasional Past Drug Use History: None Reported - Past Family History Mother Family Medical History: Unable to Obtain General Exam Limitations: no limitations General appearance: alert, in no apparent distress Head exam: Present: atraumatic, normocephalic, normal inspection Eye exam: Present: normal appearance, PERRL, EOMI. Absent: scleral icterus, conjunctival injection, periorbital swelling ENT exam: Present: normal exam, mucous membranes moist, other (Minimal fluid behind the right ear.) Neck exam: Present: normal inspection Respiratory exam: Present: normal lung sounds bilaterally. Absent: respiratory distress, wheezes, rales, rhonchi, stridor Cardiovascular Exam: Present: regular rate, normal rhythm, normal heart sounds. Absent: systolic murmur, diastolic murmur, rubs, gallop, clicks Extremities exam: Present: normal inspection, full ROM, normal capillary refill. Absent: tenderness, pedal edema, joint swelling, calf tenderness Neurological exam: Present: alert, oriented X3 Psychiatric exam: Present: normal affect, normal mood Skin exam: Present: warm, dry, intact, normal color. Absent: rash Course Vital Signs 07/08/21 18:38 Temperature 98.2 F Pulse Rate 76 Respiratory 18 Rate Blood Pressure 119/79 O2 Sat by Pulse 100 Oximetry Medical Decision Making - Medical Decision Making 31-year-old female with right ear pain. CT of the mastoids ordered due to mastoid tenderness. Physical exam shows some fluid behind the right tympanic membrane, not erythematous and nonbulging. Computed tomography scan of the mastoids negative for any acute process. Case discussed with Dr. Camp, patient can discharge home. - Radiology Data Radiology results: report reviewed, image reviewed CT of the mastoids: Negative computed tomography scan of the problems. Disposition Clinical Impression: Rhinitis, Right ear pain Disposition: HOME SELF-CARE Condition: Stable Additional Instructions: Please return to the Emergency Department if symptoms worsen or any other concerns. Follow-up primary care 1-2 days. Prescriptions: Loratadine [Alavert] 10 mg PO DAILY 30 Days #30 tab Fluticasone Nasal [place] [Flonase Nasal [place]] 2 spr EA NOSTRIL DAILY #1 bottle Is patient prescribed a controlled substance at d/c from ED?: No Referrals: Philip Juan MD [Primary Care Provider] - 1-2 days Time of Disposition: 20:33
[2021-07-08] MEDS ORDERED: ACET/COD 300 MG/30 MG STARTER PACK 6 TAB BTL PO STA (20:30)
[2021-07-08 20:41] VITALS: BP 101/58; PULSE 62; TEMP 98.8
== END 2021-07-08 20:36 | disposition home or self-care (01) ==
LOC: EC 18:36
DX: J31.0 Chronic rhinitis (principal); H92.01 Otalgia, right ear; J45.909 Unspecified asthma, uncomplicated; F17.200 Nicotine dependence, unspecified, uncomplicated; Z79.1 Long term (current) use of non-steroidal anti-inflammatories (NSAID); Z79.51 Long term (current) use of inhaled steroids; Z79.899 Other long term (current) drug therapy
CPT/HCPCS: 70486; 99283

== ENCOUNTER 2021-08-21 09:44 | Emergency (ER) | payer OTHER ==
[2021-08-21 09:56] VITALS: BP 107/77; PULSE 85; RESP 18; TEMP 97.8
[2021-08-21] MEDS ORDERED: KETOROLAC 15 MG/ML 1 ML VIAL IM STA (11:11)
--- NOTE | 2021-08-21 11:16 | ED ---
General Adult HPI - General Chief complaint: Neck Pain/Injury Stated complaint: lt sided numbness, headaches Time Seen by Provider: 08/21/21 10:10 Source: patient, RN notes reviewed, old records reviewed Mode of arrival: ambulatory Limitations: no limitations - History of Present Illness Initial comments: This is a 31-year-old female who presents emergency department stating she has chronic neck pain. Patient states his been no recent injury. Patient states she's had physical therapy and a physical therapist thought she should be seen by her orthopedic doctor. She states she went to yesterday he didn't see any changes in the x-ray that he took or her physical complaints. Patient was upset with him and states she walked out. Patient states she's on [place] 7.5 currently for pain. Patient states she comes in today because there is tingling like her arm is falling asleep in the right side though she can feel everything in move it normally. Patient states she also has some pain in the trapezius muscle area which is always there but is worse the last couple of days. Patient does not take any anti-inflammatories. Patient has not taken any Tylenol. Patient states she can't take steroids. She states she refuses to have any injections as well. - Related Data Home Medications Medication Instructions Recorded Confirmed Albuterol Inhaler (Mhu) [Ventolin 1 - 2 puff INHALATION RT-Q6H PRN 09/03/18 09/14/18 Hfa Inhaler] Albuterol Nebulized [Ventolin 2.5 mg INHALATION QID PRN 09/03/18 09/14/18 Nebulized] HYDROcodone/APAP 5-325MG [[place] 1 tab PO Q8HR PRN 09/03/18 09/14/18 5-325] Varenicline [Chantix Starter Pack] See Taper PO DIRECTED 09/14/18 09/14/18 Previous Rx's Medication Instructions Recorded Ibuprofen [Motrin] 800 mg PO Q8H PRN 7 Days #21 tab 08/01/18 Hydrocodone/Acetaminophen [[place] 1 - 2 each PO Q6HR PRN #56 tab 09/16/18 5-325] Cephalexin [Keflex] 500 mg PO Q6HR 3 Days #12 cap 09/17/18 Cyclobenzaprine [Flexeril] 5 mg PO BID #10 tablet 09/20/20 Fluticasone Nasal [place] [Flonase 2 spr EA NOSTRIL DAILY #1 bottle 07/08/21 Nasal [place]] Loratadine [Alavert] 10 mg PO DAILY 30 Days #30 tab 07/08/21 Ketorolac [Toradol] 10 mg PO Q6HR #15 tab 08/21/21 Allergies Allergy/AdvReac Type Severity Reaction Status Date / Time No Known Allergies Allergy Verified 07/08/21 18:42 Review of Systems ROS Statement: Those systems with pertinent positive or pertinent negative responses have been documented in the HPI. ROS Other: All systems not noted in ROS Statement are negative. Past Medical History Past Medical History: Asthma Additional Past Medical History / Comment(s): chronic back pain grade 4 slipped disc, , migraines, History of Any Multi-Drug Resistant Organisms: None Reported Past Surgical History: No Surgical Hx Reported Additional Past Surgical History / Comment(s): wisdom teeth, two rods in lower back with screws, Additional Past Anesthesia/Blood Transfusion Reaction / Comment(s): ONLY WISDOM TEETH REMOVED. Past Psychological History: ADD/ADHD Smoking Status: Current every day smoker Past Alcohol Use History: Occasional Past Drug Use History: None Reported - Past Family History Mother Family Medical History: Unable to Obtain General Exam - General Exam Comments Initial Comments: GENERAL: Patient is well-developed and well-nourished. Patient is nontoxic and well- hydrated and is mild distress. ENT: Neck is soft and supple. No significant lymphadenopathy is noted. Oropharynx is clear. Moist mucous membranes. Neck has full range of motion without eliciting any pain. Very minimal tenderness in the left trapezius muscle area EYES: The sclera were anicteric and conjunctiva were pink and moist. Extraocular movements were intact and pupils were equal round and reactive to light. Eyelids were unremarkable. SKIN: Skin is clear with no lesions or rashes and otherwise unremarkable. NEUROLOGIC: Patient is alert and oriented x3. Cranial nerves II through XII are grossly intact. Motor and sensory are also intact. Normal speech, volume and content. Symmetrical smile. Cerebellar exam grossly intact. MUSCULOSKELETAL: Normal extremities with adequate strength and full range of motion. LYMPHATICS: No significant lymphadenopathy is noted PSYCHIATRIC: Normal psychiatric evaluation. Limitations: no limitations Course Vital Signs 08/21/21 09:53 Temperature 97.8 F Pulse Rate 85 Respiratory 18 Rate Blood Pressure 107/77 O2 Sat by Pulse 99 Oximetry Medical Decision Making - Medical Decision Making Patient received a Toradol shot emergency department. Disposition Clinical Impression: Chronic neck pain, Other and unspecified disc disorder of cervical region Disposition: HOME SELF-CARE Condition: Good Instructions (If sedation given, give patient instructions): Chronic Neck Pain (DC) Additional Instructions: Patient is to follow-up with her physician. Prescriptions: Ketorolac [Toradol] 10 mg PO Q6HR #15 tab Is patient prescribed a controlled substance at d/c from ED?: No Referrals: Philip Juan MD [Primary Care Provider] - 1-2 days Time of Disposition: 11:16
[2021-08-21 11:28] LABS: Glucose,Whole Blood 90 mg/dL (75-99)
== END 2021-08-21 11:15 | disposition home or self-care (01) ==
LOC: EC 09:44
DX: M50.90 Cervical disc disorder, unspecified, unspecified cervical region (principal); J45.909 Unspecified asthma, uncomplicated; G43.909 Migraine, unspecified, not intractable, without status migrainosus; F90.9 Attention-deficit hyperactivity disorder, unspecified type; F17.200 Nicotine dependence, unspecified, uncomplicated; Z72.89 Other problems related to lifestyle; Z79.51 Long term (current) use of inhaled steroids
CPT/HCPCS: 36415; 99283; 96372; J1885

== ENCOUNTER → 2021-09-26 | Outpatient (CLI) | payer OTHER ==
--- NOTE | 2021-09-27 03:49 | MR ---
EXAMINATION TYPE: MR brain/cspine wo DATE OF EXAM: 09/26/2021 COMPARISON: 01/22/2021 and 01/05/2019 HISTORY: Arnold chiari malformation, chronic neck pain with left and right arm pain, and chronic migr aines x1 year. Ventricles have normal size. There is no mass effect nor midline shift. There is no sign of intracran ial hemorrhage. Corpus callosum appears intact. Sella turcica appears normal. There is no evidence of cerebral edema. Lim-white matter structures have fairly normal signal pattern. There is some elongation of the cerebellar tonsils into the foramen magnum. Fourth ventricle is in no rmal position. There is no evidence of orbital mass. Optic chiasm appears normal. The cervical vertebra have normal alignment. Disc spaces are fairly normal. There is a mild posterior disc bulge at C5-6. There is developmentally adequate spinal canal. There is no spinal stenosis. Cer vical spinal cord has normal signal pattern. There is no edema. Spinal canal measures 8.5 mm at the n arrowest point which is C5-6. There is no evidence of focal bone destruction. There is no compression fracture. IMPRESSION: There is posterior cervical disc herniation at C5-6 without significant impingement on the spinal can al and cervical spinal cord. Disc herniation slightly increased compared to old exam. There is a mild Chiari malformation of the posterior fossa without change compared to old exam. No ac stanley intracranial abnormality.
== END | disposition home or self-care (01) ==
LOC: RADMRIMAIN 15:05
PROVIDERS: ATTEND Family Medicine
DX: M50.322 Other cervical disc degeneration at C5-C6 level (principal); Q07.00 Arnold-Chiari syndrome without spina bifida or hydrocephalus
CPT/HCPCS: 70551; 72141

== ENCOUNTER → 2022-09-24 | Outpatient (CLI) | payer OTHER ==
--- NOTE | 2022-09-24 09:41 | MR ---
EXAMINATION TYPE: MR cervical spine wo con DATE OF EXAM: 09/24/2022 COMPARISON: 09/26/2021 HISTORY: Neck pain, headaches, BUE weakness. TECHNIQUE: Multiplanar, multisequence images of the cervical spine were acquired without contrast. C2-C3: Disc desiccation. No disc herniation or canal stenosis and no foraminal approach. C3-C4: Degenerative disc disease and disc desiccation. Very mild central disc bulging but no canal st enosis. Bilateral mild uncovertebral joint. C4-C5: No evidence for degenerative disc disease. No disc bulge/herniation or protrusion. No Canal stenosis. Foramina are patent bilaterally. C5-C6: Mild broad-based central and right paracentral disc herniation with mild mass effect upon the anterior margin of the spinal cord C6-C7: Broad-based disc bulging with a small focal 2-3 mm disc herniation on axial image 17 paracentr al to the right contacting the anterior margin of the spinal cord. Neural foramina patent. C7-T1: No evidence for degenerative disc disease. No disc bulge/herniation or protrusion. No Canal stenosis. Foramina are patent bilaterally. Cervical segments are intact. There is normal alignment. Cervical spinal cord is of normal signal. Craniovertebral junction demonstrates persistent toe. The cerebellar tonsils compatible with Chiari I malformation measuring approximately 6.5 mm below the foramen magnum. No definite tonsillar beaking .. IMPRESSION: 1. Craniovertebral junction demonstrates persistent toe. The cerebellar tonsils compatible with Chiar i I malformation measuring approximately 6.5 mm below the foramen magnum. No definite tonsillar beaki ng.. 2. Broad-based central and right paracentral disc herniation C5-C6 may be mildly progressed from prio r exam. As mild anterior compression of the spinal cord at this level. 3. Disc bulging C6-C7 with a 3 mm focal right paracentral disc herniation contacting the anterior mar gin of the spinal cord best seen on axial image 17. Correlate clinically.
== END | disposition home or self-care (01) ==
LOC: RADMRIMAIN 08:28
PROVIDERS: ATTEND Physician Assistant
DX: M50.123 Cervical disc disorder at C6-C7 level with radiculopathy (principal); M50.11 Cervical disc disorder with radiculopathy, high cervical region; G95.20 Unspecified cord compression
CPT/HCPCS: 72141

== ENCOUNTER → 2022-10-16 | Outpatient (CLI) | payer OTHER | END | disposition home or self-care (01) | LOC: LABPAT 13:18 | PROVIDERS: ATTEND Orthopaedic Surgery Orthopaedic Surgery of the Spine | DX: Z01.812 Encounter for preprocedural laboratory examination (principal) | CPT/HCPCS: 87070 ==

== ENCOUNTER → 2022-11-06 | Outpatient (CLI) | payer OTHER ==
[2022-11-06 15:15] LABS: Partial Thromboplastin Time 23.6 sec (22.0-30.0); Prothrombin Time 10.7 sec (9.0-12.0)
[2022-11-06 22:48] LABS: Basophils # (A) 0.04 X 10*3/uL (0.00-0.10); Basophils % (A) 0.4 %; Eosinophils # (A) 0.11 X 10*3/uL (0.04-0.35); HCT 49.9 % (37.2-46.3); HGB 15.5 g/dL (12.0-15.0); Immature Grans, Automated 0.4 %; Lymphocytes # (A) 1.73 X 10*3/uL (0.90-5.00); Lymphocytes % (A) 15.6 %; MCH 29.5 pg (27.0-32.0); MCHC 31.1 g/dL (32.0-37.0); MCV 94.9 fL (80.0-97.0); Mean Platelet Volume 10.4 fL (9.5-12.2); Monocytes # (A) 0.55 X 10*3/uL (0.20-1.00); Monocytes % (A) 4.9 %; NRBC Per 100 WBC 0 /100 WBCS (0.0-0.0); Neutrophils # (A) 8.65 X 10*3/uL (1.80-7.70); Neutrophils % (A) 77.7 %; Platelet Count 215 X 10*3/uL (140-440); RBC 5.26 X 10*6/uL (4.10-5.20); RDW 12.5 % (11.5-14.5); WBC 11.12 X 10*3/uL (4.50-10.00)
[2022-11-06 22:52] LABS: Appearance,Urine Cloudy (Clear); Bilirubin,Urine Negative (Negative); Blood,Urine Negative (Negative); Color,Urine Yellow (Yellow); Ketones,Urine Negative (Negative); Nitrite,Urine Negative (Negative); Urobilinogen,Urine 0.2 (0.2,1.0)
[2022-11-06 23:38] LABS: Bacteria,Urine 2+ /HPF (None Seen)
[2022-11-07 00:02] LABS: ALT 13 U/L (8-44); AST 11 U/L (13-35); African American GFR (CKD) 136.7 (60.0-200.0); Albumin 3.4 g/dL (3.8-4.9); Albumin/Globulin Ratio 2.41 (1.60-3.17); Alkaline Phosphatase 43 U/L (41-126); BUN/Creat Ratio 16.59 Ratio (12.00-20.00); Blood Urea Nitrogen 10.2 mg/dL (9.0-27.0); Calcium 8.7 mg/dL (8.7-10.3); Carbon Dioxide 26.9 mmol/L (20.0-27.5); Chloride 106 mmol/L (96-109); Globulin 1.4 g/dL (1.6-3.3); Glucose 90 mg/dL (70-110); Potassium 4.5 mmol/L (3.5-5.5); Sodium 139 mmol/L (135-145); Total Bilirubin <0.15 mg/dL (0.30-1.20); Total Protein 4.8 g/dL (6.2-8.2)
== END | disposition home or self-care (01) ==
LOC: LABWHC1 14:00
PROVIDERS: ATTEND Orthopaedic Surgery Orthopaedic Surgery of the Spine
DX: Z01.812 Encounter for preprocedural laboratory examination (principal); M48.02 Spinal stenosis, cervical region
CPT/HCPCS: 36415; 80053; 81001; 85025; 85610; 85730

== ENCOUNTER 2022-11-13 06:41 | Observation (INO) | payer OTHER ==
[2022-11-07 15:40] VITALS: BMI 28.3
[~2022-11-13 06:41] MED LIST changes: -BACITRACIN 50,000 UNIT, POLYMYXIN B 500,000 UNIT in SODIUM CHLORIDE 0.9% IRRIGATIO 1,00... IRRIGATION ONE; -HYDROmorphone 1 MG/ML 1 ML SYRINGE IVP PRN; +LIDOCAINE 1% (10MG/ML) FOR IV START INTRADERMA PRN; -LIDOCAINE 1% 20 ML VIAL (10MG/ML) FOR IV START INTRADERMA PRN; -ONDANSETRON 4 MG/2 ML VIAL IVP ONE; +ceFAZolin 1,000 MG in SODIUM CHLORIDE 0.9% IRRIGATIO 1,000 ML IRRIGATION PRN; -ceFAZolin IN SWFI 2 GM/20 ML SYRINGE IVP ONE
[2022-11-13] MEDS ORDERED: HYDROmorphone 0.5 MG/0.5 ML SYRINGE IVP PRN ×2 (07:00→09:33)
[2022-11-13] MEDS ORDERED: ONDANSETRON 4 MG/2 ML VIAL IVP PRN ×2 (07:00→09:33)
[2022-11-13] MEDS ORDERED: LACTATED RINGERS 1,000 ML IV ONE ×2 (07:15→09:20)
[2022-11-13] MEDS ORDERED: PROPOFOL 10 MG/ML 20 ML VIAL IV ONE (07:55)
[2022-11-13] MEDS ORDERED: SUCCINYLCHOLINE CHLORIDE 200 MG/10 ML VIAL IV ONE (07:55)
[2022-11-13] MEDS ORDERED: ceFAZolin 1,000 MG VIAL ONE (07:55)
[2022-11-13] MEDS ORDERED: fentaNYL (PF) 50 MCG/ML 2 ML AMP ONE (07:55)
[2022-11-13] MEDS ORDERED: GLYCOPYRROLATE 0.2 MG/ML 2 ML VIAL ONE (07:55)
[2022-11-13] MEDS ORDERED: LIDOCAINE 2% INJ 20 MG/ML (2 ML VIAL) ONE (07:55)
[2022-11-13] MEDS ORDERED: HYDROmorphone (PF) 1 MG/ML ONE (07:55)
[2022-11-13] MEDS ORDERED: MIDAZOLAM 2 MG/2 ML VIAL ONE (07:55)
[2022-11-13] MEDS ORDERED: ROCURONIUM 10 MG/ML (5 ML VIAL) IV ONE (07:55)
[2022-11-13] MEDS ORDERED: KETAMINE 10 MG/ML 20 ML VIAL ONE (07:55)
[2022-11-13] MEDS ORDERED: NEOSTIGMINE 1 MG/ML 10 ML VIAL ONE (07:55)
[2022-11-13] MEDS ORDERED: LIDOCAINE 0.5%-EPI 1:200,000 50 ML VIAL SQ ONE (08:26)
[2022-11-13] MEDS ORDERED: THROMBIN (BOVINE) 5,000 UNIT VIAL MISCELLANE ONE (08:29)
[2022-11-13] MEDS ORDERED: GELATIN SPONGE,ABSORB (LARGE) 1 EACH SPONGE MISCELLANE ONE (08:29)
[2022-11-13] MEDS ORDERED: CYCLOBENZAPRINE 10 MG TAB PO PRN (09:33)
[2022-11-13] MEDS ORDERED: HYDROmorphone 1 MG/ML 1 ML SYRINGE IVP PRN (09:33)
[2022-11-13] MEDS ORDERED: HYDROcodone/APAP 5-325MG 1 EACH TAB PO PRN (09:33)
[2022-11-13] MEDS ORDERED: BENZOCAINE/MENTHOL LOZENG 1 EACH LOZENGE MUCOUS MEM PRN (09:33)
[2022-11-13] MEDS ORDERED: HYDROcodone/APAP 7.5-325MG 1 EACH TAB PO PRN (09:34)
[2022-11-13] MEDS ORDERED: ONDANSETRON 4 MG TAB PO PRN (09:34)
--- NOTE | 2022-11-13 09:41 | P.OP ---
Date of Procedure: 11/13/22 Preoperative Diagnosis: Herniated nucleus pulposis C5 6, upper extremity radiculopathy, neck pain Postoperative Diagnosis: Same Anesthesia: GETA Pathology: none sent Condition: stable Disposition: PACU Description of Procedure: BRIEF OPERATIVE NOTE Preoperative Diagnosis:Herniated nucleus pulposis C5 6, upper extremity radiculopathy, neck pain Postoperative Diagnosis:Herniated nucleus pulposis C5 6, upper extremity radiculopathy, neck pain Procedure: Anterior cervical decompression with discectomy and fusion C5 6 Placement of interbody graft C5 6 Application of anterior cervical plate C5 6 Surgeon: Dr. Villanueva Card Puncher: Garcia WISDOM Anesthesia: General anesthesia per Dr. Santos Estimated blood loss: Approximately 25 mL Complications: None apparent Components implanted: K2M Wetzel anterior cervical plate system with Vikos interbody allograft bone graft Disposition: To recovery room in good stable condition. OPERATIVE INDICATIONS The patient has had long-standing issues in their neck and upper extremities. She's been having worsening symptoms have been primarily in her right side but have been extending to her left as well. She has significant neck pain and regular headaches. She is found have a disc herniation at C5 6 which correlated with many of her symptoms at her neck and her upper extremities. The patient has been through conservative treatment. She does not have any lasting benefit despite aggressive conservative treatment. We discussed various treatment options including surgery, and the patient wishes to proceed with surgery We discussed the risk, patient's alternatives and benefits of surgery including but not limited to, risk of bleeding risk of infection, risk of need for further surgery, risk of decreased, loss of motion, muscle function, malunion nonunion, hardware failure, nerve damage, paralysis, heart attack, and . We also discussed the possibility that surgery may not alleviate her symptoms. OPERATIVE SUMMARY After discussing all the risks, patient alternatives and benefits at length, the patient elected to proceed with surgical intervention, signed informed consent, and presented for their procedure. The patient was seen and examined in the preoperative holding area and the surgical site was marked. The patient was given antibiotics and brought to the operating room. The patient was positioned on the operating room table in a supine position being careful to pad any bony prominences and pressure points. The patient was sedated and intubated by anesthesia in standard fashion. Once the airway and C- spine were stabilized the patient's arms were padded and tucked at her side, with her shoulders gently taped. The head was placed in a donut pad with the neck in good neutral alignment and position. We were careful to maintain the patient's cervical spine and good neutral alignment and position throughout. The patient was prepped and draped in a normal standard fashion. An appropriate timeout and keystone protocol performed. We were able to proceed with the surgery. The local wound area was infiltrated with local anesthetic. An incision was made transversely approximately 2-1/2 cm over the appropriate levels at C5 6 on the right. Dissection was taken down subcutaneously to the level of the platysma which was split in line with its fibers. Dissection was taken with a carotid approach, with the trachea and esophagus medial and the carotid sheath laterally. We dissected down to the anterior surface of the vertebral bodies. Intraoperative x-ray was taken which showed a marker at C6 7 level. With that area marked was able to expose the next cephalad level at C5 6 and positively confirmed that 56 level. With the appropriate level positively confirmed, we were able to proceed with discectomy at the appropriate levels of C5 6. All of the operative levels were exposed appropriately. The patient had all their twitches back, and there was no evidence of recurrent laryngeal issue. The wound was copiously irrigated and suctioned dry as had been done periodically throughout the case. At the appropriate level/levels, I established an annulotomy with an 11 blade scalpel. A discectomy was performed with a combination of pituitary rongeurs, curettes, a high-speed bur, and Kerrison rongeurs. The posterior longitudinal ligament was taken down as were any posterior osteophytes. This gave good central and bilateral foraminal decompression. There is no evidence of any dural tear or leak. The endplates were prepared with a high-speed bur. With the endplates in good parallel position, I was able to size for the appropriate size interbody graft. The wound was irrigated and suctioned dry the graft was prepared and malleted into position. It had good alignment and position with the anterior surface flush with the anterior surface of the vertebral bodies of C5 and 6. With the grafts intact, I was able to measure and contour and appropriate sized plate. The plate was positioned at the midline over the appropriate levels of C5 6. Screw holes were established with a hand drill and drill guide. Screws were placed in good alignment and position with excellent bony purchase. They were seated under the locking device. The construct was checked and found to be stable. Intraoperative x-ray was taken which showed good alignment and position of the implants at the appropriate levels. There was no evidence of any dural tear or leak. Good hemostasis was maintained. The wound was copiously irrigated and suctioned dry as had been done periodically throughout the case. The platysma was closed with absorbable suture. The subcutaneous tissue was closed. The subcuticular tissue was closed with absorbable suture. The wound was cleaned and dried and dressed appropriately. A soft cervical collar was placed appropriately. The patient was woken up by anesthesia, extubated, transferred back gently to their hospital bed and brought to the recovery room in good stable condition. The patient will be admitted to the hospital for appropriate postoperative care, medical management and monitoring. We will continue to follow them closely about the postoperative course.
--- NOTE | 2022-11-13 09:44 | XR ---
EXAMINATION TYPE: XR cervical spine 1V DATE OF EXAM: 11/13/2022 COMPARISON: NONE HISTORY: Needle placement TECHNIQUE: Single intraoperative crosstable lateral view FINDINGS: Surgical instruments seen overlying the lower cervical spine. Multilevel hypertrophic calhoun es. Endotracheal tube. IMPRESSION: Intraoperative needle placement
[2022-11-13] MEDS ORDERED: TOPIRAMATE 100 MG TAB PO SCH (09:45)
--- NOTE | 2022-11-13 09:48 | XR ---
EXAMINATION TYPE: XR cervical spine 1V DATE OF EXAM: 11/13/2022 COMPARISON: NONE HISTORY: Hardware placement TECHNIQUE: Single crosstable lateral view submitted FINDINGS: Postsurgical change appears in near-anatomic alignment. There is a small amount of soft tis jj emphysema likely postsurgical. Endotracheal IMPRESSION: Postoperative change
[2022-11-13] MEDS: SODIUM CHLORIDE 0.9% 1,000 ML IV SCH (11:16)
[2022-11-13] MEDS: LACTATED RINGERS 1,000 ML IV SCH (11:31)
[2022-11-13] MEDS: HYDROcodone/APAP 7.5-325MG 1 EACH TAB PO PRN ×2 (12:09→17:46)
[2022-11-13] MEDS: TOPIRAMATE 100 MG TAB PO PRN (14:28)
[2022-11-13] MEDS: NON FORMULARY DRUG (Dextroamphetamine/Amphetamine [Adderall] 20 MG Tablet) PO SCH (19:30)
[2022-11-14] MEDS: SODIUM CHLORIDE 0.9% 1,000 ML IV SCH (06:47)
[2022-11-14] MEDS: LACTATED RINGERS 1,000 ML IV SCH (06:47)
[2022-11-14] MEDS: NON FORMULARY DRUG (Dextroamphetamine/Amphetamine [Adderall] 20 MG Tablet) PO SCH (07:41)
[2022-11-14 07:47] VITALS: BP 99/68; PULSE 81; RESP 17; TEMP 98.4
[2022-11-14] MEDS ORDERED: SUMAtriptan succinate 25 MG TAB PO PRN (08:20)
[2022-11-14] MEDS ORDERED: ESCITALOPRAM 5 MG TAB PO SCH (09:00)
[2022-11-14] MEDS ORDERED: SENNOSIDES-DOCUSATE SODIUM 1 EACH TAB PO SCH (09:00)
[2022-11-14] MEDS: TOPIRAMATE 100 MG TAB PO PRN (09:03)
[2022-11-14] MEDS: HYDROcodone/APAP 7.5-325MG 1 EACH TAB PO PRN (09:03)
--- NOTE | 2022-11-14 10:31 | P.DS ---
Providers Date of admission: 11/14/22 06:48 Attending physician: Shukri Villanueva Primary care physician: Philip Juan MD Hospital Course: The patient presented on the day of admission as per their operative note. She underwent anterior cervical decompression with discectomy and fusion at C5 6 for disc herniation and stenosis and feels that she is making progress with her arms. She still having some headaches. She denies any new weakness or numbness tingling. She is tolerating her soft diet well. Physical Exam The incision site is clean dry and intact. There is no erythema no drainage. There is no purulence no evidence of infection. Her neck is soft and supple Abdomen soft and nontender. Chest has good excursion with deep inspiration and expiration. The patient has active and passive range of motion intact at the upper and lower extremities. There is no acute change in neurologic status. Hospital Course Postoperative day #1 status post anterior cervical decompression with discectomy and fusion C5 6 for her disc herniation with stenosis and upper extremity radiculopathy. Patient is making some progress in terms of her symptoms of her upper extremities. The patient has been making good progress postoperatively. They have completed the prophylactic antibiotics without any signs or symptoms of infection. The patient has been able to advance their diet, and is tolerating diet adequately. The pain was initially controlled with IV medications and is now controlled appropriately with oral medications. The patient has been able to increase their mobilization. The patient has progressed appropriately. I think they are in good stable condition for discharge today. They will be sent home with appropriate prescriptions. I answered their questions to the best of my ability in a language that they can understand and they are agreeable with the plan. They will follow up as directed in approximately 2 weeks or sooner if she is having problems. Patient Condition at Discharge: Good Plan - Discharge Summary Discharge Rx Participant: No New Discharge Prescriptions: New HYDROcodone/APAP 7.5-325MG [[place] 7.5-325] 1 tab PO Q6HR PRN 3 Days #12 tab PRN Reason: Pain No Action Ibuprofen [Motrin] 800 mg PO Q8H PRN 7 Days #21 tab PRN Reason: Pain Ondansetron [Zofran] 4 mg PO Q8HR PRN PRN Reason: Nausea Naproxen [Naprosyn] 500 mg PO DIRECTED PRN PRN Reason: Pain Dextroamphetamine/Amphetamine [Adderall] 20 mg PO BID Topiramate [Topamax] 100 mg PO DIRECTED Escitalopram [Lexapro] 5 mg PO DAILY HYDROcodone/APAP 7.5-325MG [[place] 7.5-325] 1 tab PO BID PRN PRN Reason: Pain Rimegepant Sulfate [Nurtec Odt] 75 mg PO DIRECTED Discharge Medication List Ibuprofen [Motrin] 800 mg PO Q8H PRN 7 Days #21 tab 08/01/18 [Rx] Dextroamphetamine/Amphetamine [Adderall] 20 mg PO BID 11/07/22 [History] HYDROcodone/APAP 7.5-325MG [[place] 7.5-325] 1 tab PO BID PRN 11/07/22 [History] Naproxen [Naprosyn] 500 mg PO DIRECTED PRN 11/07/22 [History] Ondansetron [Zofran] 4 mg PO Q8HR PRN 11/07/22 [History] Rimegepant Sulfate [Nurtec Odt] 75 mg PO DIRECTED 11/07/22 [History] Topiramate [Topamax] 100 mg PO DIRECTED 11/07/22 [History] Escitalopram [Lexapro] 5 mg PO DAILY 11/13/22 [History] HYDROcodone/APAP 7.5-325MG [[place] 7.5-325] 1 tab PO Q6HR PRN 3 Days #12 tab 11/13/22 [Rx] Patient Instructions/Handouts: *Surgery [facility] - ([place]) Cervical Surgery Discharge Instructions
[2022-11-14] MEDS ORDERED: PANTOPRAZOLE 40 MG/10 ML VIAL IVP SCH (12:15)
--- NOTE | 2022-11-14 19:54 | P.CONS ---
History of Present Illness - Reason for Consult Consult date: 11/14/22 Medical management of asthma, nicotine dependence, marijuana use Requesting physician: Shukri Villanueva - Chief Complaint Discharge herniation with stenosis and upper extremity radiculopathy status - History of Present Illness This is a pleasant 32-year-old female admitted with disc herniation with stenosis and upper extremity radiculopathy status post anterior cervical deco mpression with dissecting me and fusion C5 6. Tolerated procedure well. Reporting neck pain improving, headache with mild nausea-recently receiving Zofran and Imitrex. Denies chest pain, palpitations or shortness of breath. Denies vomiting, diarrhea or abdominal pain. Denies any numbness or tingling. PT pending. Afebrile. Maintaining O2 sats in the high 90s on room air. Review of Systems Constitutional: denied any fever. Cardio vascular: denied any chest pain, palpitations Gastrointestinal denied any vomiting Pulmonary: Denied any shortness of breath cough Neurologic denied any new focal deficits ROS Statement: Those systems with pertinent positive or pertinent negative responses have been documented in the HPI. ROS Other: All systems not noted in ROS Statement are negative. Past Medical History Past Medical History: Asthma Additional Past Medical History / Comment(s): chronic back pain grade 4 slipped disc, migraines History of Any Multi-Drug Resistant Organisms: None Reported Past Surgical History: Back Surgery Additional Past Surgical History / Comment(s): two rods in lower back with screws, 11/13/22 C5-C6 anterior cervical decompression Past Anesthesia/Blood Transfusion Reactions: No Reported Reaction Additional Past Anesthesia/Blood Transfusion Reaction / Comm: ONLY WISDOM TEETH REMOVED. Past Psychological History: ADD/ADHD Smoking Status: Former smoker Past Alcohol Use History: None Reported Additional Past Alcohol Use History / Comment(s): SMOKING SINCE 16 YRS OLD, QUIT WHILE , SMOKED < 1/2PPD. TRYING TO QUIT . Past Drug Use History: Marijuana Additional Drug Use History / Comment(s): occasional marijuana use - Past Family History Mother Family Medical History: No Reported History Medications and Allergies Home Medications Medication Instructions Recorded Confirmed Type Ibuprofen [Motrin] 800 mg PO Q8H PRN 7 Days #21 tab 08/01/18 11/13/22 Rx Dextroamphetamine/Amphetamine 20 mg PO BID 11/07/22 11/13/22 History [Adderall] HYDROcodone/APAP 7.5-325MG [[place] 1 tab PO BID PRN 11/07/22 11/13/22 History 7.5-325] Naproxen [Naprosyn] 500 mg PO DIRECTED PRN 11/07/22 11/13/22 History Ondansetron [Zofran] 4 mg PO Q8HR PRN 11/07/22 11/13/22 History Rimegepant Sulfate [Nurtec Odt] 75 mg PO DIRECTED 11/07/22 11/13/22 History Topiramate [Topamax] 100 mg PO DIRECTED 11/07/22 11/13/22 History Escitalopram [Lexapro] 5 mg PO DAILY 11/13/22 11/13/22 History HYDROcodone/APAP 7.5-325MG [[place] 1 tab PO Q6HR PRN 3 Days #12 tab 11/13/22 Rx 7.5-325] Allergies Allergy/AdvReac Type Severity Reaction Status Date / Time No Known Allergies Allergy Verified 11/13/22 07:07 Physical Exam Vitals: Vital Signs Temp Pulse Resp BP Pulse Ox 11/14/22 07:46 98.4 F 81 17 99/68 98 11/14/22 02:00 98.0 F 89 16 99/64 96 11/13/22 19:50 97.6 F 69 17 114/79 97 11/13/22 14:23 97.9 F 82 14 119/78 100 Intake and Output 11/13/22 11/14/22 11/14/22 22:59 06:59 14:59 Intake Total 650 180 Balance 650 180 Intake: Intake, IV Titration 650 Amount Sodium Chloride 0.9% 1, 600 000 ml @ 75 mls/hr IV . [id number] NALINI Rx#:[id number] ceFAZolin 2 gm In Sodium 50 Chloride 0.9% 50 ml @ 100 mls/hr IVPB Q8HR [facility] Rx# :[id number] Oral 180 Other: # Voids 5 PHYSICAL EXAM: VITAL SIGNS: As above GENERAL: Sitting up in bed, no acute distress HEENT: Conjunctivae normal. eyes normal. Oral mucosa moist NECK: Supple, No JVD. CARDIOVASCULAR: S1, S2 regular.No murmur RESPIRATION: Nonlabored, Breath sounds diminished in the bases. No rhonchi or crackles. No bronchial breathing. ABDOMEN: Soft, nontender . No guarding. no masses palpable. No ascites, No hepatosplenomegaly.Bowel sounds heard. LEGS: No edema. no swelling PSYCHIATRY: Alert and oriented X3, mood and affect normal. NERVOUS SYSTEM: Cranial N 2-12 grossly normal. No focal deficits. Strength and sensation grossly intact.. Skin: Warm and dry, no rash. Surgical dressing clean dry and intact. Assessment and Plan Assessment: Disc herniation with stenosis and upper extremity radiculopathy, status post a nterior cervical decompression with discectomy and fusion C5 6. Obesity, BMI 29.3 Ongoing nicotine dependence Asthma, intermittent- chronic controlled History of migraine headaches ADD/ADHD Marijuana use Plan: Continue on current medication regime ,monitoring and symptomatic treatment. Pain management. PT. Aggressive pulmonary toileting with incentive spirometer reinforced. Smoking cessation reinforced. Discharge planning in progress as per orthopedics. Thank you for the consult. Follow with PCP in one week. The impression and plan of care has been dictated as directed. : I performed a history and examination of this patient, discussed the same with the dictator. I agree with the dictator's note ,documented as a scribe. Any additional findings or plans will be noted.
[2022-11-18] MEDS ORDERED: NON FORMULARY DRUG (Rimegepant Sulfate [Nurtec Odt] 75 MG Tablet) PO SCH (09:45)
== END 2022-11-14 11:57 | disposition home or self-care (01) ==
LOC: OR 06:41 → 4SSUR 09:47 → OR 11-14 06:48
PROVIDERS: ADMIT Orthopaedic Surgery Orthopaedic Surgery of the Spine; ATTEND Orthopaedic Surgery Orthopaedic Surgery of the Spine
DX: M50.122 Cervical disc disorder at C5-C6 level with radiculopathy (principal); J45.909 Unspecified asthma, uncomplicated; M48.02 Spinal stenosis, cervical region; G89.29 Other chronic pain; Z87.891 Personal history of nicotine dependence; F90.9 Attention-deficit hyperactivity disorder, unspecified type; J44.9 Chronic obstructive pulmonary disease, unspecified; J45.20 Mild intermittent asthma, uncomplicated; M54.9 Dorsalgia, unspecified; G43.909 Migraine, unspecified, not intractable, without status migrainosus; Z98.890 Other specified postprocedural states; E66.9 Obesity, unspecified; Z68.29 Body mass index [BMI] 29.0-29.9, adult; Z79.899 Other long term (current) drug therapy
CPT/HCPCS: 81025; 86900; 86901; 86850; 72020; 22551; 20931; G0378; C1713; C1762; J2250; J0330; J2710; J0690 ×3; J2405; J3010; J1170 ×2; J2704; J2001

== ENCOUNTER 2023-03-30 22:12 | Emergency (ER) | payer OTHER ==
[2023-03-30] MEDS ORDERED: KETOROLAC 15 MG/ML 1 ML VIAL IM STA (23:26)
--- NOTE | 2023-03-30 23:43 | ED ---
General Adult HPI - General Chief complaint: Fall Stated complaint: Fall Right side injury Time Seen by Provider: 03/30/23 23:18 Source: patient, RN notes reviewed Mode of arrival: ambulatory Limitations: no limitations - History of Present Illness Initial comments: 32-year-old female resents to the emergency department with a chief complaint of right shoulder pain. Patient reports that she was walking up a small ladder when she lost her footing and fell onto her right shoulder. She is complaining of pain to the upper extremity. She is not taken anything for her symptoms. She denies any numbness, tingling, weakness in her extremity. She denies any loss of consciousness, hitting her head, anticoagulant use. - Related Data Home Medications Medication Instructions Recorded Confirmed Dextroamphetamine/Amphetamine 20 mg PO BID 11/07/22 11/13/22 [Adderall] HYDROcodone/APAP 7.5-325MG [[place] 1 tab PO BID PRN 11/07/22 11/13/22 7.5-325] Naproxen [Naprosyn] 500 mg PO DIRECTED PRN 11/07/22 11/13/22 Ondansetron [Zofran] 4 mg PO Q8HR PRN 11/07/22 11/13/22 Rimegepant Sulfate [Nurtec Odt] 75 mg PO DIRECTED 11/07/22 11/13/22 Topiramate [Topamax] 100 mg PO DIRECTED 11/07/22 11/13/22 Escitalopram [Lexapro] 5 mg PO DAILY 11/13/22 11/13/22 Previous Rx's Medication Instructions Recorded Ibuprofen [Motrin] 800 mg PO Q8H PRN 7 Days #21 tab 08/01/18 HYDROcodone/APAP 7.5-325MG [[place] 1 tab PO Q6HR PRN 3 Days #12 tab 11/13/22 7.5-325] Allergies Allergy/AdvReac Type Severity Reaction Status Date / Time No Known Allergies Allergy Verified 03/30/23 22:58 Review of Systems ROS Statement: Those systems with pertinent positive or pertinent negative responses have been documented in the HPI. ROS Other: All systems not noted in ROS Statement are negative. Past Medical History Past Medical History: Asthma Additional Past Medical History / Comment(s): chronic back pain grade 4 slipped disc, migraines History of Any Multi-Drug Resistant Organisms: None Reported Past Surgical History: Back Surgery Additional Past Surgical History / Comment(s): two rods in lower back with screws, 11/13/22 C5-C6 anterior cervical decompression Past Anesthesia/Blood Transfusion Reactions: No Reported Reaction Additional Past Anesthesia/Blood Transfusion Reaction / Comment(s): ONLY WISDOM TEETH REMOVED. Past Psychological History: ADD/ADHD Smoking Status: Former smoker Past Alcohol Use History: None Reported Past Drug Use History: Marijuana - Past Family History Mother Family Medical History: No Reported History General Exam - General Exam Comments Initial Comments: General: Alert, in no acute distress Head: atraumatic normocephalic. Eyes PERRL, EOMI intact, mucous membranes moist Respiratory: Lungs clear to auscultation bilaterally Cardiovascular: Heart rate regular rate and rhythm Abdominal: Soft without guarding or rebound Extremities: Normal inspection with full range of motion and normal capillary refill Neuroogic: alert and oriented 3, CN II-XII intact, able to ambulate with steady gait Skin: warm dry and intact with normal color Limitations: no limitations Course Vital Signs 03/30/23 03/31/23 22:53 02:07 Temperature 98.1 F 98.0 F Pulse Rate 75 54 L Respiratory 20 18 Rate Blood Pressure 117/83 106/72 O2 Sat by Pulse 100 100 Oximetry Medical Decision Making - Medical Decision Making Was pt. sent in by a medical professional or institution (ARTIS Vyas, LEVELING MACHINE OPERATOR, urgent care, hospital, or senior care...) When possible be specific @ -[No] Did you speak to anyone other than the patient for history (EMS, parent, family, police, friend...)? What history was obtained from this source @ -[No] Did you review nursing and triage notes (agree or disagree)? Why? @ -[I reviewed and agree with nursing and triage notes] Were old charts reviewed (outside hosp., previous admission, EMS record, old EKG, old radiological studies, urgent care reports/EKG's, senior care records)? Report findings @ -[No old charts were reviewed] Differential Diagnosis (chest pain, altered mental status, abdominal pain women, abdominal pain men, vaginal bleeding, weakness, fever, dyspnea, syncope, headache, dizziness, GI bleed, back pain, seizure, CVA, palpatations, mental health, musculoskeletal)? @ -[not applicable] EKG interpreted by me (3pts min.). @ -[As above] X-rays interpreted by me (1pt min.). @ -X-rays negative for any evidence of acute fracture or dislocation. CT interpreted by me (1pt min.). @ -[None done] U/S interpreted by me (1pt. min.). @ -[None done] What testing was considered but not performed or refused? (CT, X-rays, U/S, labs)? Why? @ -[None] What meds were considered but not given or refused? Why? @ -[None] Did you discuss the management of the patient with other professionals (professionals i.e. Dr., PA, LEVELING MACHINE OPERATOR, lab, RT, psych nurse, hospice social worker, helix coil winder, teacher, sheriff's officer, case picker)? Give summary @ -[No] Was smoking cessation discussed for >3mins.? @ -[No] Was critical care preformed (if so, how long)? @ -[No] Were there social determinants of health that impacted care today? How? (Homelessness, low income, unemployed, alcoholism, drug addiction, transportation, low edu. Level, literacy, decrease access to med. care, penitentiary, rehab)? @ -[No] Was there de-escalation of care discussed even if they declined (Discuss DNR or withdrawal of care, Hospice)? DNR status @ -[No] What co-morbidities impacted this encounter? (DM, HTN, Smoking, COPD, CAD, Cancer, CVA, ARF, Chemo, Hep., AIDS, mental health diagnosis, sleep apnea, morbid obesity)? @ -[None] Was patient admitted / discharged? Hospital course, mention meds given and route, prescriptions, significant lab abnormalities, going to OR and other pertinent info. @ -[Discharged. This is a 32-year-old female presents to the emergency department with shoulder and neck pain. Patient had a thorough history and physical exam performed while in the ED. Physical exam is esse ntially unremarkable heart rate regular rate and rhythm, lung sounds clear to auscultation bilaterally abdomen, abdomen soft and nontender. right shoulder without edema, erythema, non-teender. 2+ radial pulses. Patient had lab work and imaging performed which is essentially unremarkable. I discussed results in detail with the patient verbalized understanding and all questions were addressed. She was given Toradol and Lidoderm patch with symptomatic relief on the ED. Return precautions were discussed at length. She was discharged with Tylenol 3's. .Patient discharged in stable condition. Case discussed with RIANA Contreras who agrees with plan of care Undiagnosed new problem with uncertain prognosis? @ -[No] Drug Therapy requiring intensive monitoring for toxicity (Heparin, Nitro, Insulin, Cardizem)? @ -[No] Were any procedures done? @ -[No] Diagnosis/symptom? @ - Right Shoulder Pain Acute, or Chronic, or Acute on Chronic? @ -Acute Uncomplicated (without systemic symptoms) or Complicated (systemic symptoms)? @ -uncomplicated Side effects of treatment? @ -[No] Exacerbation, Progression, or Severe Exacerbation? @ -[No] Poses a threat to life or bodily function? How? (Chest pain, [place], [place], pneumonia, PE, COPD, DKA, ARF, appy, cholecystitis, CVA, Diverticulitis, Homicidal, Suicidal, threat to staff... and all critical care pts) @ -low liklelihood Disposition Clinical Impression: Right shoulder pain Disposition: HOME SELF-CARE Condition: Stable Instructions (If sedation given, give patient instructions): Shoulder Sprain (ED) Additional Instructions: Use Tylenol and Motrin as needed for pain Elevate the extremity Please return to the nearest emergency department symptoms worsen or persist Is patient prescribed a controlled substance at d/c from ED?: No Referrals: Jesse Leavitt MD [Primary Care Provider] - 1-2 days Time of Disposition: 00:50
[2023-03-31] MEDS ORDERED: ACET/COD 300 MG/30 MG STARTER PACK 6 TAB BTL PO STA (00:51)
--- NOTE | 2023-03-31 01:35 | XR ---
EXAM: XR Right Clavicle Complete, 2 or More Views CLINICAL HISTORY: XR Reason: right shoulder pain TECHNIQUE: Frontal and lordotic views of the right clavicle. COMPARISON: No relevant prior studies available. FINDINGS: Bones/joints: Unremarkable. No acute fracture. No dislocation. Soft tissues: Unremarkable. IMPRESSION: Normal right clavicle x-rays.
--- NOTE | 2023-03-31 01:36 | XR ---
EXAM: XR Right Shoulder Complete, 2 or More Views CLINICAL HISTORY: XR Reason: right shoulder pain TECHNIQUE: Two or more views of the right shoulder. COMPARISON: No relevant prior studies available. FINDINGS: Bones/joints: The clavicle, scapula, and humerus are intact and normally aligned. No acute fracture. No dislocation. Previous cervical spine fusion of C5-6. Soft tissues: Unremarkable. IMPRESSION: No acute findings in the right shoulder.
[2023-03-31 02:09] VITALS: BP 106/72; PULSE 54; RESP 18; TEMP 98
== END 2023-03-31 02:09 | disposition home or self-care (01) ==
LOC: EC 22:12
DX: M25.511 Pain in right shoulder (principal); J45.909 Unspecified asthma, uncomplicated; F12.90 Cannabis use, unspecified, uncomplicated; Z87.891 Personal history of nicotine dependence; Z79.899 Other long term (current) drug therapy
CPT/HCPCS: 73000; 73030; 99283; 96372; J1885

== ENCOUNTER 2023-04-20 09:12 | Emergency (ER) | payer OTHER ==
[2023-04-20 09:18] VITALS: PULSE 70
[2023-04-20] MEDS ORDERED: KETOROLAC 15 MG/ML 1 ML VIAL IM STA (10:38)
[2023-04-20] MEDS ORDERED: ORPHENADRINE 30 MG/ML 2 ML VIAL IM STA (10:38)
[2023-04-20] MEDS ORDERED: ACET/COD 300 MG/30 MG STARTER PACK 6 TAB BTL PO STA (10:39)
--- NOTE | 2023-04-20 10:45 | ED ---
Upper Extremity HPI - General Chief Complaint: Extremity Injury, Upper Stated Complaint: right side neck and shoulder pain Time Seen by Provider: 04/20/23 10:29 Source: patient Mode of arrival: ambulatory Limitations: no limitations - History of Present Illness Initial Comments: patient is a 32-year-old female sent in to the emergency room with complaints of continued right shoulder and neck pain. she was evaluated approximately 3 weeks ago for shoulder pain after a fall. Workup was negative at that time. She does report that the pain improved slightly and she increase her activity levels and the next day she began having increase in pain. She is on Blanchard at home and states that the pain is breaking through the Bl[place]ard. She denies any range of motion impairment not directly related to pain. She denies any new and radiculopathy or neuropathy. She denies any new trauma. She denies any other complaints or concerns at this time. she is a past medical history significant for asthma chronic back pain and migraines and does follow with pain clinic. - Related Data Home Medications Medication Instructions Recorded Confirmed Dextroamphetamine/Amphetamine 20 mg PO BID 11/07/22 11/13/22 [Adderall] HYDROcodone/APAP 7.5-325MG [[place] 1 tab PO BID PRN 11/07/22 11/13/22 7.5-325] Naproxen [Naprosyn] 500 mg PO DIRECTED PRN 11/07/22 11/13/22 Ondansetron [Zofran] 4 mg PO Q8HR PRN 11/07/22 11/13/22 Rimegepant Sulfate [Nurtec Odt] 75 mg PO DIRECTED 11/07/22 11/13/22 Topiramate [Topamax] 100 mg PO DIRECTED 11/07/22 11/13/22 Escitalopram [Lexapro] 5 mg PO DAILY 11/13/22 11/13/22 Previous Rx's Medication Instructions Recorded Ibuprofen [Motrin] 800 mg PO Q8H PRN 7 Days #21 tab 08/01/18 HYDROcodone/APAP 7.5-325MG [[place] 1 tab PO Q6HR PRN 3 Days #12 tab 11/13/22 7.5-325] Allergies Allergy/AdvReac Type Severity Reaction Status Date / Time No Known Allergies Allergy Verified 04/20/23 09:18 Review of Systems ROS Statement: Those systems with pertinent positive or pertinent negative responses have been documented in the HPI. ROS Other: All systems not noted in ROS Statement are negative. Past Medical History Past Medical History: Asthma Additional Past Medical History / Comment(s): chronic back pain grade 4 slipped disc, migraines History of Any Multi-Drug Resistant Organisms: None Reported Past Surgical History: Back Surgery Additional Past Surgical History / Comment(s): two rods in lower back with screws, 11/13/22 C5-C6 anterior cervical decompression Past Anesthesia/Blood Transfusion Reactions: No Reported Reaction Additional Past Anesthesia/Blood Transfusion Reaction / Comment(s): ONLY WISDOM TEETH REMOVED. Past Psychological History: ADD/ADHD Smoking Status: Former smoker Past Alcohol Use History: None Reported Past Drug Use History: Marijuana - Past Family History Mother Family Medical History: No Reported History General Exam - General Exam Comments Initial Comments: GENERAL: No acute distress, well developed, well nourished. HEENT: Normocephalic, atraumatic. Pupils equal, round, reactive to light. Moist mucous membranes. no point vertebral tenderness of cervical spine. LUNGS: No respiratory distress or use of accessory muscles. HEART: Regular rate.. ABDOMEN: Non-distended. BACK: Normal inspection. EXTREMITIES: No edema. No tenderness. Moves all extremities. right shoulder no point tenderness over AC joint. Full passive range of motion. Active range of motion limited to pain. No swelling. No erythema. No crepitus or dislocation. 2+ right radial pulse NEUROLOGIC: Alert & oriented x 3. CN II-XII grossly intact. PSYCHIATRIC: Normal affect and behavior. DERMATOLOGIC: Skin intact, without rashes or lesions noted. Limitations: no limitations Course Vital Signs 04/20/23 04/20/23 09:16 11:42 Temperature 98.1 F 98.0 F Pulse Rate 70 70 Respiratory 18 16 Rate Blood Pressure 110/74 108/72 O2 Sat by Pulse 99 99 Oximetry Medical Decision Making - Medical Decision Making Was pt. sent in by a medical professional or institution (, PA, BAKERY MACHINE MECHANIC SUPERVISOR, urgent care, hospital, or jail...) When possible be specific @ -No Did you speak to anyone other than the patient for history (EMS, parent, family, police, friend...)? What history was obtained from this source @ -No Did you review nursing and triage notes (agree or disagree)? Why? @ -I reviewed and agree with nursing and triage notes Were old charts reviewed (outside hosp., previous admission, EMS record, old EKG, old radiological studies, urgent care reports/EKG's, jail records)? Report findings @ -Yes, x-ray reports from 03/31/2023 of shoulder and clavicle reviewed. Differential Diagnosis (chest pain, altered mental status, abdominal pain women, abdominal pain men, vaginal bleeding, weakness, fever, dyspnea, syncope, headache, dizziness, GI bleed, back pain, seizure, CVA, palpatations, mental health, musculoskeletal)? @ -Differential Musculoskeletal Muscular strain, contusion, ligament sprain, fracture, arthritis, septic arthritis, bursitis, cellulitis, muscle spasm, nerve compression, DVT, arterial occlusion, herpes zoster, electrolyte abnormality, tumor.... This is not meant to be in all inclusive list EKG interpreted by me (3pts min.). @ -None done X-rays interpreted by me (1pt min.). @ -None done CT interpreted by me (1pt min.). @ -None done U/S interpreted by me (1pt. min.). @ -None done What testing was considered but not performed or refused? (CT, X-rays, U/S, labs)? Why? @ -None What meds were considered but not given or refused? Why? @ -None Did you discuss the management of the patient with other professionals (pro fessionals i.e. , PA, BAKERY MACHINE MECHANIC SUPERVISOR, lab, RT, psych nurse, director social service, machine wood sander, teacher, disability insurance hearing officer, case management coordinator)? Give summary @ -No Was smoking cessation discussed for >3mins.? @ -No Was critical care preformed (if so, how long)? @ -No Were there social determinants of health that impacted care today? How? (Homelessness, low income, unemployed, alcoholism, drug addiction, transportation, low edu. Level, literacy, decrease access to med. care, nursing home, rehab)? @ -No Was there de-escalation of care discussed even if they declined (Discuss DNR or withdrawal of care, Hospice)? DNR status @ -No What co-morbidities impacted this encounter? (DM, HTN, Smoking, COPD, CAD, Cancer, CVA, ARF, Chemo, Hep., AIDS, mental health diagnosis, sleep apnea, morbid obesity)? @ -None Was patient admitted / discharged? Hospital course, mention meds given and route, prescriptions, significant lab abnormalities, going to OR and other pertinent info. @ -32-year-old female sent in to the emergency room with complaints of continued right shoulder and neck pain. she was evaluated approximately 3 weeks ago for shoulder pain after a fall. Workup was negative at that time. She does report that the pain improved slightly and she increase her activity levels and the next day she began having increase in pain. She is on [place] at home and states that the pain is breaking through the Blanchard. She denies any range of motion impairment not directly related to pain. She denies any new and radiculopathy or neuropathy. She denies any new trauma. No indication for repeat imaging or serum studies. Will give IM Norflex and Toradol and monitor response. Good response to Toradol and Norflex. Patient is requesting a Tylenol 3 starter pack. Will provide advised caution when taking other products containing Tylenol and taking Tylenol 3 starter pack. Advised no other controlled substance prescriptions setting of current control medications prescribed by roger galan for her pain. Encouraged follow-up with pain management. Advised continuation of rest, ice and elevation when possible. Encouraged follow-up with primary care provider and orthopedic is needed. Questions and concerns answered. Return parameters to the emergency room discussed. Will discharge home in stable condition with Tylenol 3 starter pack and use of previously prescribed Blanchard prescription for right shoulder pain advising follow-up with primary care provider and orthopedist if needed. Undiagnosed new problem with uncertain prognosis? @ -No Drug Therapy requiring intensive monitoring for toxicity (Heparin, Nitro, Insulin, Cardizem)? @ -No Were any procedures done? @ -No Diagnosis/symptom? @ -Right shoulder pain Acute, or Chronic, or Acute on Chronic? @ -Acute Uncomplicated (without systemic symptoms) or Complicated (systemic symptoms)? @ -Uncomplicated Side effects of treatment? @ -No Exacerbation, Progression, or Severe Exacerbation? @ -No Poses a threat to life or bodily function? How? (Chest pain, [place], [place], pneumonia, PE, COPD, DKA, ARF, appy, cholecystitis, CVA, Diverticulitis, Homicidal, Suicidal, threat to staff... and all critical care pts) @ -No Case discussed with Dr. Sheikh. Disposition Clinical Impression: Right shoulder pain Disposition: HOME SELF-CARE Condition: Stable Instructions (If sedation given, give patient instructions): Shoulder Pain (ED) Additional Instructions: Utilize Tylenol 3 starter pack as needed for pain do not take concurrently with [place]anchard prescription. Continue follow-up with your painter; follow-up with orthopedics specialist is also recommended. Gentle range of motion with out excessive use of your right arm is encouraged. Ice and heat application may help with your symptoms. Please follow-up with your primary care provider Please return to the Emergency Department if symptoms worsen or any other concerns. Is patient prescribed a controlled substance at d/c from ED?: No Referrals: Jesse Leavitt MD [Primary Care Provider] - 1-2 days Time of Disposition: 11:36
[2023-04-20 11:43] VITALS: BP 108/72; RESP 16; TEMP 98
== END 2023-04-20 11:54 | disposition home or self-care (01) ==
LOC: EC 09:12
DX: M25.511 Pain in right shoulder (principal); M54.2 Cervicalgia; J45.909 Unspecified asthma, uncomplicated; Z87.891 Personal history of nicotine dependence; F12.90 Cannabis use, unspecified, uncomplicated
CPT/HCPCS: 99284; J2360; J1885; 96372

== ENCOUNTER 2023-05-11 14:59 | Emergency (ER) | payer OTHER ==
[2023-05-11] MEDS ORDERED: Acetaminophen-Codeine 300-30mg TAB PO STA (16:16)
--- NOTE | 2023-05-11 16:42 | XR ---
Right shoulder. HISTORY: Shoulder pain without trauma. COMPARISON: None. TECHNIQUE: 3 views the right shoulder were obtained. FINDINGS: There is no fracture, dislocation, intraosseous, intra-articular soft tissue abnormality. IMPRESSION: No significant abnormality seen.
[2023-05-11] MEDS ORDERED: ACET/COD 300 MG/30 MG STARTER PACK 6 TAB BTL PO STA (17:07)
--- NOTE | 2023-05-11 17:07 | ED ---
General Adult HPI - General Chief complaint: Extremity Injury, Upper Stated complaint: R side neck and shoulder pain Time Seen by Provider: 05/11/23 15:48 Source: patient, RN notes reviewed Mode of arrival: ambulatory - History of Present Illness Initial comments: 32-year-old female presents emergency department chief complaint of right shoulder pain x1 month. She states that the pain is constant. She states that it is worse with movements of her neck and shoulder. She states that she has taken Tylenol #3 in the past which helped with the pain. She states that she sees Dr. Villanueva. Patient denies any new injury. Denies chest pain, shortness of breath fever, chills, nausea, vomiting, erythema to the area, swelling. - Related Data Home Medications Medication Instructions Recorded Confirmed Dextroamphetamine/Amphetamine 20 mg PO BID 11/07/22 11/13/22 [Adderall] HYDROcodone/APAP 7.5-325MG [[place] 1 tab PO BID PRN 11/07/22 11/13/22 7.5-325] Naproxen [Naprosyn] 500 mg PO DIRECTED PRN 11/07/22 11/13/22 Ondansetron [Zofran] 4 mg PO Q8HR PRN 11/07/22 11/13/22 Rimegepant Sulfate [Nurtec Odt] 75 mg PO DIRECTED 11/07/22 11/13/22 Topiramate [Topamax] 100 mg PO DIRECTED 11/07/22 11/13/22 Escitalopram [Lexapro] 5 mg PO DAILY 11/13/22 11/13/22 Previous Rx's Medication Instructions Recorded Ibuprofen [Motrin] 800 mg PO Q8H PRN 7 Days #21 tab 08/01/18 HYDROcodone/APAP 7.5-325MG [[place] 1 tab PO Q6HR PRN 3 Days #12 tab 11/13/22 7.5-325] Allergies Allergy/AdvReac Type Severity Reaction Status Date / Time No Known Allergies Allergy Verified 05/11/23 15:03 Review of Systems ROS Statement: Those systems with pertinent positive or pertinent negative responses have been documented in the HPI. ROS Other: All systems not noted in ROS Statement are negative. Past Medical History Past Medical History: Asthma Additional Past Medical History / Comment(s): chronic back pain grade 4 slipped disc, migraines History of Any Multi-Drug Resistant Organisms: None Reported Past Surgical History: Back Surgery Additional Past Surgical History / Comment(s): two rods in lower back with screws, 11/13/22 C5-C6 anterior cervical decompression Past Anesthesia/Blood Transfusion Reactions: No Reported Reaction Additional Past Anesthesia/Blood Transfusion Reaction / Comment(s): ONLY WISDOM TEETH REMOVED. Past Psychological History: ADD/ADHD Smoking Status: Former smoker Past Alcohol Use History: None Reported Past Drug Use History: Marijuana - Past Family History Mother Family Medical History: No Reported History General Exam Limitations: no limitations General appearance: alert, in no apparent distress Head exam: Present: atraumatic, normocephalic, normal inspection Eye exam: Present: normal appearance, PERRL, EOMI. Absent: scleral icterus, conjunctival injection, periorbital swelling ENT exam: Present: normal exam, mucous membranes moist Neck exam: Present: normal inspection, full ROM, other (right sided trapezius ttp ). Absent: tenderness, meningismus, lymphadenopathy Respiratory exam: Present: normal lung sounds bilaterally. Absent: respiratory distress, wheezes, rales, rhonchi, stridor Cardiovascular Exam: Present: regular rate, normal rhythm, normal heart sounds. Absent: systolic murmur, diastolic murmur, rubs, gallop, clicks GI/Abdominal exam: Present: soft, normal bowel sounds. Absent: distended, tenderness, guarding, rebound, rigid Extremities exam: Present: normal inspection, full ROM, normal capillary refill. Absent: tenderness, pedal edema, joint swelling, calf tenderness Back exam: Present: normal inspection Neurological exam: Present: alert, oriented X3 Psychiatric exam: Present: normal affect, normal mood Skin exam: Present: warm, dry, intact, normal color. Absent: rash Course Vital Signs 05/11/23 05/11/23 15:01 17:14 Temperature 99.0 F 98.9 F Pulse Rate 66 65 Respiratory 18 16 Rate Blood Pressure 112/68 125/78 O2 Sat by Pulse 97 98 Oximetry Medical Decision Making - Medical Decision Making Was pt. sent in by a medical professional or institution (, PA, TOP HAT BODY MAKER, urgent care, hospital, or halfway...) When possible be specific @ -No Did you speak to anyone other than the patient for history (EMS, parent, family, police, friend...)? What history was obtained from this source @ -No Did you review nursing and triage notes (agree or disagree)? Why? @ -I reviewed and agree with nursing and triage notes Were old charts reviewed (outside hosp., previous admission, EMS record, old EKG, old radiological studies, urgent care reports/EKG's, halfway records)? Report findings @ -No old charts were reviewed Differential Diagnosis (chest pain, altered mental status, abdominal pain women, abdominal pain men, vaginal bleeding, weakness, fever, dyspnea, syncope, headache, dizziness, GI bleed, back pain, seizure, CVA, palpatations, mental health, musculoskeletal)? @ -Differential Musculoskeletal Muscular strain, contusion, ligament sprain, fracture, arthritis, septic arthritis, bursitis, cellulitis, muscle spasm, nerve compression, DVT, arterial occlusion, herpes zoster, electrolyte abnormality, tumor.... This is not meant to be in all inclusive list EKG interpreted by me (3pts min.). @ -None X-rays interpreted by me (1pt min.). @ -XR right shoulder showed no evidence for acute fracture CT interpreted by me (1pt min.). @ -None done U/S interpreted by me (1pt. min.). @ -None done What testing was considered but not performed or refused? (CT, X-rays, U/S, labs)? Why? @ -None What meds were considered but not given or refused? Why? @ -None Did you discuss the management of the patient with other professionals (professionals i.e. , PA, TOP HAT BODY MAKER, lab, RT, psych nurse, oncology social worker, ceramic worker, teacher, customer service officer, case folder)? Give summary @ -No Was smoking cessation discussed for >3mins.? @ -No Was critical care preformed (if so, how long)? @ -No Were there social determinants of health that impacted care today? How? (Homelessness, low income, unemployed, alcoholism, drug addiction, transportation, low edu. Level, literacy, decrease access to med. care, detention, rehab)? @ -No Was there de-escalation of care discussed even if they declined (Discuss DNR or withdrawal of care, Hospice)? DNR status @ -No What co-morbidities impacted this encounter? (DM, HTN, Smoking, COPD, CAD, Cancer, CVA, ARF, Chemo, Hep., AIDS, mental health diagnosis, sleep apnea, morbid obesity)? @ -None Was patient admitted / discharged? Hospital course, mention meds given and route, prescriptions, significant lab abnormalities, going to OR and other pertinent info. @ -Discharge. Patient since the emergency department chief complaint of right- sided neck and shoulder pain 1 month. This pain is worse with movements of the head and shoulder. X-ray of the shoulder was obtained and showed no evidence for acute fracture. This pain seems to be muscular skeletal in nature as it is easily reproducible and worse with movement. Patient sees an orthopedic provider for her neck pain. Patient was advised to follow-up with Dr. Villanueva. She given a tylenol #3 starter pack. Patient stable at time of discharge. Undiagnosed new problem with uncertain prognosis? @ -No Drug Therapy requiring intensive monitoring for toxicity (Heparin, Nitro, Insul in, Cardizem)? @ -No Were any procedures done? @ -No Diagnosis/symptom? @ -Trapezius strain Acute, or Chronic, or Acute on Chronic? @ -acute Uncomplicated (without systemic symptoms) or Complicated (systemic symptoms)? @ -uncomplicated Side effects of treatment? @ -No Exacerbation, Progression, or Severe Exacerbation? @ -No Poses a threat to life or bodily function? How? (Chest pain, [place], [place], pneumonia, PE, COPD, DKA, ARF, appy, cholecystitis, CVA, Diverticulitis, Homicidal, Suicidal, threat to staff... and all critical care pts) @ -No Disposition Clinical Impression: Strain of shoulder Disposition: HOME SELF-CARE Condition: Stable Instructions (If sedation given, give patient instructions): Muscle Strain (ED) Additional Instructions: Please follow-up with Dr. Villanueva or his PA next week. Return to the emergency department for new or worsening symptoms. Is patient prescribed a controlled substance at d/c from ED?: No Referrals: Jesse Leavitt MD [Primary Care Provider] - 1-2 days Time of Disposition: 17:10
[2023-05-11 17:18] VITALS: BP 125/78; PULSE 65; RESP 16; TEMP 98.9
== END 2023-05-11 17:31 | disposition home or self-care (01) ==
LOC: EC 14:59
DX: S46.911A Strain of unspecified muscle, fascia and tendon at shoulder and upper arm level, right arm, initial encounter (principal); J45.909 Unspecified asthma, uncomplicated; Z87.891 Personal history of nicotine dependence; F12.90 Cannabis use, unspecified, uncomplicated; Z79.899 Other long term (current) drug therapy; X50.9XXA Other and unspecified overexertion or strenuous movements or postures, initial encounter
CPT/HCPCS: 99283

== ENCOUNTER 2023-11-25 11:11 | Emergency (ER) | payer OTHER ==
--- NOTE | 2023-11-25 12:39 | ED ---
General Adult HPI - General Chief complaint: Skin/Abscess/Foreign Body Stated complaint: rash Time Seen by Provider: 11/25/23 11:47 Source: patient, RN notes reviewed Mode of arrival: ambulatory Limitations: no limitations - History of Present Illness Initial comments: 33 year old female presents to the emergency department for evaluation of rash. She states this has been present for around one week. 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 She states that this occurs in her antecubital spaces and around her neck. She denies any associated symptoms including fever, chills, nausea, vomiting. Denies any new products at home, medications. - Related Data Home Medications Medication Instructions Recorded Confirmed Dextroamphetamine/Amphetamine 20 mg PO BID 11/07/22 11/13/22 [Adderall] HYDROcodone/APAP 7.5-325MG [[place] 1 tab PO BID PRN 11/07/22 11/13/22 7.5-325] Naproxen [Naprosyn] 500 mg PO DIRECTED PRN 11/07/22 11/13/22 Ondansetron [Zofran] 4 mg PO Q8HR PRN 11/07/22 11/13/22 Rimegepant Sulfate [Nurtec Odt] 75 mg PO DIRECTED 11/07/22 11/13/22 Topiramate [Topamax] 100 mg PO DIRECTED 11/07/22 11/13/22 Escitalopram [Lexapro] 5 mg PO DAILY 11/13/22 11/13/22 Previous Rx's Medication Instructions Recorded Ibuprofen [Motrin] 800 mg PO Q8H PRN 7 Days #21 tab 08/01/18 HYDROcodone/APAP 7.5-325MG [[place] 1 tab PO Q6HR PRN 3 Days #12 tab 11/13/22 7.5-325] Hydrocortisone Cream 1 applic TOPICAL BID 5 Days #28 gm 11/25/23 [Hydrocortisone 2.5% Cream] Allergies Allergy/AdvReac Type Severity Reaction Status Date / Time No Known Allergies Allergy Verified 11/25/23 11:29 Review of Systems ROS Statement: Those systems with pertinent positive or pertinent negative responses have been documented in the HPI. ROS Other: All systems not noted in ROS Statement are negative. Past Medical History Past Medical History: Asthma Additional Past Medical History / Comment(s): chronic back pain grade 4 slipped disc, migraines History of Any Multi-Drug Resistant Organisms: None Reported Past Surgical History: Back Surgery Additional Past Surgical History / Comment(s): two rods in lower back with screws, 11/13/22 C5-C6 anterior cervical decompression Past Anesthesia/Blood Transfusion Reactions: No Reported Reaction Additional Past Anesthesia/Blood Transfusion Reaction / Comment(s): ONLY WISDOM TEETH REMOVED. Past Psychological History: ADD/ADHD Smoking Status: Former smoker Past Alcohol Use History: None Reported Past Drug Use History: Marijuana - Past Family History Mother Family Medical History: No Reported History General Exam Limitations: no limitations General appearance: alert, in no apparent distress Head exam: Present: atraumatic, normocephalic, normal inspection Eye exam: Present: normal appearance, PERRL, EOMI. Absent: scleral icterus, conjunctival injection, periorbital swelling ENT exam: Present: normal exam, mucous membranes moist Neck exam: Present: normal inspection, full ROM. Absent: tenderness, meningismus, lymphadenopathy Respiratory exam: Present: normal lung sounds bilaterally. Absent: respiratory distress, wheezes, rales, rhonchi, stridor Cardiovascular Exam: Present: regular rate, normal rhythm, normal heart sounds. Absent: systolic murmur, diastolic murmur, rubs, gallop, clicks Extremities exam: Present: normal inspection, full ROM, normal capillary refill. Absent: tenderness, pedal edema, joint swelling, calf tenderness Back exam: Present: normal inspection Neurological exam: Present: alert, oriented X3 Psychiatric exam: Present: normal affect, normal mood Skin exam: Present: warm, dry, intact, rash, other (Abdomen is having a rash in the antecubital spaces bilaterally, around the neck). Absent: normal color Course Vital Signs 11/25/23 11/25/23 11:26 13:04 Temperature 98.4 F 98.7 F Pulse Rate 75 76 Respiratory 18 16 Rate Blood Pressure 125/74 120/72 O2 Sat by Pulse 100 98 Oximetry Medical Decision Making - Medical Decision Making Was pt. sent in by a medical professional or institution (, PA, KEYBOARD SPECIALIST, urgent care, hospital, or skilled nursing...) When possible be specific @ -No Did you speak to anyone other than the patient for history (EMS, parent, family, police, friend...)? What history was obtained from this source @ -No Did you review nursing and triage notes (agree or disagree)? Why? @ -I reviewed and agree with nursing and triage notes Were old charts reviewed (outside hosp., previous admission, EMS record, old EKG, old radiological studies, urgent care reports/EKG's, skilled nursing records)? Report findings @ -No old charts were reviewed Differential Diagnosis (chest pain, altered mental status, abdominal pain women, abdominal pain men, vaginal bleeding, weakness, fever, dyspnea, syncope, headache, dizziness, GI bleed, back pain, seizure, CVA, palpatations, mental health, musculoskeletal)? @ -Folliculitis, eczema, contact dermatitis, this list is not all-inclusive EKG interpreted by me (3pts min.). @ -none X-rays interpreted by me (1pt min.). @ -None done CT interpreted by me (1pt min.). @ -None done U/S interpreted by me (1pt. min.). @ -None done What testing was considered but not performed or refused? (CT, X-rays, U/S, labs)? Why? @ -None What meds were considered but not given or refused? Why? @ -None Did you discuss the management of the patient with other professionals (professionals i.e. , PA, KEYBOARD SPECIALIST, lab, RT, psych nurse, high school social studies tutor, battery repairer, teacher, chief revenue officer, showcase trimmer)? Give summary @ -No Was smoking cessation discussed for >3mins.? @ -No Was critical care preformed (if so, how long)? @ -No Were there social determinants of health that impacted care today? How? (Homelessness, low income, unemployed, alcoholism, drug addiction, transportation, low edu. Level, literacy, decrease access to med. care, group home, r ehab)? @ -No Was there de-escalation of care discussed even if they declined (Discuss DNR or withdrawal of care, Hospice)? DNR status @ -No What co-morbidities impacted this encounter? (DM, HTN, Smoking, COPD, CAD, Cancer, CVA, ARF, Chemo, Hep., AIDS, mental health diagnosis, sleep apnea, morbid obesity)? @ -None Was patient admitted / discharged? Hospital course, mention meds given and route, prescriptions, significant lab abnormalities, going to OR and other pertinent info. @ -discharged. 33-year-old female presented to the emergency department for evaluation of rash. She has a history of Darier's disease and this is the typical rash that she experiences. She states that when she has a flare she has utilized topical steroids in the past but has not used any this time around. Prescription sent to patient's pharmacy for 2.5% hydrocortisone cream. Patient advised to the medication utilized as prescribed. Patient understanding and agreeable with plan. Patient stable at time of discharge. Case discussed with Dr. Grant Undiagnosed new problem with uncertain prognosis? @ -No Drug Therapy requiring intensive monitoring for toxicity (Heparin, Nitro, Insulin, Cardizem)? @ -No Were any procedures done? @ -No Diagnosis/symptom? @ -keratosis folliculitis Acute, or Chronic, or Acute on Chronic? @ -acute Uncomplicated (without systemic symptoms) or Complicated (systemic symptoms)? @ -uncomplicated Side effects of treatment? @ -No Exacerbation, Progression, or Severe Exacerbation? @ -No Poses a threat to life or bodily function? How? (Chest pain, [place], [place], pneumonia, PE, COPD, DKA, ARF, appy, cholecystitis, CVA, Diverticulitis, Homicidal, Suicidal, threat to staff... and all critical care pts) @ -No Disposition Clinical Impression: Keratosis follicularis Disposition: HOME SELF-CARE Condition: Stable Instructions (If sedation given, give patient instructions): Folliculitis (ED) Additional Instructions: Please follow up with your primary care provider. Return to the emergency department for new or worsening symptoms. Prescriptions: Hydrocortisone Cream [Hydrocortisone 2.5% Cream] 1 applic TOPICAL BID 5 Days #28 gm Is patient prescribed a controlled substance at d/c from ED?: No Referrals: Kristofer Presley, DO [Primary Care Provider] - 1-2 days
[2023-11-25 13:25] VITALS: BP 120/72; PULSE 76; RESP 16; TEMP 98.7
== END 2023-11-25 13:06 | disposition home or self-care (01) ==
LOC: EC 11:11
DX: L73.8 Other specified follicular disorders (principal); J45.909 Unspecified asthma, uncomplicated; F90.9 Attention-deficit hyperactivity disorder, unspecified type; F12.90 Cannabis use, unspecified, uncomplicated; Z79.899 Other long term (current) drug therapy; Z87.891 Personal history of nicotine dependence
CPT/HCPCS: 99282

== ENCOUNTER 2024-02-01 18:15 | Emergency (ER) | payer OTHER ==
--- NOTE | 2024-02-01 18:26 | ED ---
General Adult HPI - General Chief complaint: Upper Respiratory Infection Stated complaint: SOB/Headache Time Seen by Provider: 02/01/24 18:25 Source: patient, RN notes reviewed Mode of arrival: ambulatory Limitations: no limitations - History of Present Illness Initial comments: 33-year-old female presents to the emergency department for evaluation of " bronchitis." She states that her throat is sore. She states that she has been coughing a lot which is making her have a headache. She notes that symptoms have been going on for the past couple of days. She has a history of migraines and takes medication for this. She states that a daily medication is not helping her headache. - Related Data Home Medications Medication Instructions Recorded Confirmed Dextroamphetamine/Amphetamine 20 mg PO BID 11/07/22 11/13/22 [Adderall] HYDROcodone/APAP 7.5-325MG [[place] 1 tab PO BID PRN 11/07/22 11/13/22 7.5-325] Naproxen [Naprosyn] 500 mg PO DIRECTED PRN 11/07/22 11/13/22 Ondansetron [Zofran] 4 mg PO Q8HR PRN 11/07/22 11/13/22 Rimegepant Sulfate [Nurtec Odt] 75 mg PO DIRECTED 11/07/22 11/13/22 Topiramate [Topamax] 100 mg PO DIRECTED 11/07/22 11/13/22 Escitalopram [Lexapro] 5 mg PO DAILY 11/13/22 11/13/22 Previous Rx's Medication Instructions Recorded Ibuprofen [Motrin] 800 mg PO Q8H PRN 7 Days #21 tab 08/01/18 HYDROcodone/APAP 7.5-325MG [[place] 1 tab PO Q6HR PRN 3 Days #12 tab 11/13/22 7.5-325] Hydrocortisone Cream 1 applic TOPICAL BID 5 Days #28 gm 11/25/23 [Hydrocortisone 2.5% Cream] Benzonatate 100 mg PO TID #15 cap 02/01/24 Allergies Allergy/AdvReac Type Severity Reaction Status Date / Time No Known Allergies Allergy Verified 11/25/23 11:29 Review of Systems ROS Statement: Those systems with pertinent positive or pertinent negative responses have been documented in the HPI. ROS Other: All systems not noted in ROS Statement are negative. Past Medical History Past Medical History: Asthma Additional Past Medical History / Comment(s): chronic back pain grade 4 slipped disc, migraines History of Any Multi-Drug Resistant Organisms: None Reported Past Surgical History: Back Surgery Additional Past Surgical History / Comment(s): two rods in lower back with screws, 11/13/22 C5-C6 anterior cervical decompression Past Anesthesia/Blood Transfusion Reactions: No Reported Reaction Additional Past Anesthesia/Blood Transfusion Reaction / Comment(s): ONLY WISDOM TEETH REMOVED. Past Psychological History: ADD/ADHD Smoking Status: Former smoker Past Alcohol Use History: None Reported Past Drug Use History: Marijuana - Past Family History Mother Family Medical History: No Reported History General Exam - General Exam Comments Initial Comments: Visual Physical Exam Vital signs reviewed General: Well-appearing, nontoxic, no acute distress. Head: Normocephalic, atraumatic Eyes: PERRLA, EOMI ENT: Airway patent Chest: Nonlabored breathing Skin: No visual rash, normal skin tone Neuro: Alert and oriented 3 Musculoskeletal: No gross abnormalities Limitations: no limitations General appearance: alert, in no apparent distress Head exam: Present: atraumatic, normocephalic, normal inspection Eye exam: Present: normal appearance, PERRL, EOMI. Absent: scleral icterus, conjunctival injection, periorbital swelling ENT exam: Present: normal exam, mucous membranes moist Neck exam: Present: normal inspection. Absent: tenderness, meningismus, lymphadenopathy Respiratory exam: Present: normal lung sounds bilaterally. Absent: respiratory distress, wheezes, rales, rhonchi, stridor Cardiovascular Exam: Present: regular rate, normal rhythm, normal heart sounds. Absent: systolic murmur, diastolic murmur, rubs, gallop, clicks GI/Abdominal exam: Present: soft, normal bowel sounds. Absent: distended, tenderness, guarding, rebound, rigid Extremities exam: Present: normal inspection, full ROM, normal capillary refill. Absent: tenderness, pedal edema, joint swelling, calf tenderness Back exam: Present: normal inspection Neurological exam: Present: alert, oriented X3 Psychiatric exam: Present: normal affect, normal mood Skin exam: Present: warm, dry, intact, normal color. Absent: rash Course Vital Signs 02/01/24 18:22 Temperature 98.3 F Pulse Rate 75 Respiratory 16 Rate Blood Pressure 121/84 O2 Sat by Pulse 99 Oximetry Medical Decision Making - Medical Decision Making Quick note preformed and electronically signed by ARTIS Sommer-C Was pt. sent in by a medical professional or institution (ARTIS Vyas, CHICKEN DRESSER, urgent care, hospital, or fpc...) When possible be specific @ -No Did you speak to anyone other than the patient for history (EMS, parent, family, police, friend...)? What history was obtained from this source @ -No Did you review nursing and triage notes (agree or disagree)? Why? @ -I reviewed and agree with nursing and triage notes Were old charts reviewed (outside hosp., previous admission, EMS record, old EKG, old radiological studies, urgent care reports/EKG's, fpc records)? Report findings @ -No old charts were reviewed Differential Diagnosis (chest pain, altered mental status, abdominal pain women, abdominal pain men, vaginal bleeding, weakness, fever, dyspnea, syncope, headache, dizziness, GI bleed, back pain, seizure, CVA, palpatations, mental health, musculoskeletal)? @ -Not applicable EKG interpreted by me (3pts min.). @ -None X-rays interpreted by me (1pt min.). @ -Chest x-ray shows no acute process CT interpreted by me (1pt min.). @ -None done U/S interpreted by me (1pt. min.). @ -None done What testing was considered but not performed or refused? (CT, X-rays, U/S, labs)? Why? @ -None What meds were considered but not given or refused? Why? @ -None Did you discuss the management of the patient with other professionals (professionals i.e. ARTIS Vyas, CHICKEN DRESSER, lab, RT, psych nurse, social contact worker, pet sitting, teacher, safety instruction police officer, manager mountain)? Give summary @ -No Was smoking cessation discussed for >3mins.? @ -No Was critical care preformed (if so, how long)? @ -No Were there social determinants of health that impacted care today? How? (Homelessness, low income, unemployed, alcoholism, drug addiction, transportation, low edu. Level, literacy, decrease access to med. care, fdc, rehab)? @ -No Was there de-escalation of care discussed even if they declined (Discuss DNR or withdrawal of care, Hospice)? DNR status @ -No What co-morbidities impacted this encounter? (DM, HTN, Smoking, COPD, CAD, Cancer, CVA, ARF, Chemo, Hep., AIDS, mental health diagnosis, sleep apnea, morbid obesity)? @ -None Was patient admitted / discharged? Hospital course, mention meds given and route, prescriptions, significant lab abnormalities, going to OR and other [email or web address] ne info. @ -Discharge. Patient presented to the emergency department for evaluation of upper respiratory problem. Patient was tested for COVID, influenza, RSV which were negative. Chest x-ray obtained shows no acute process. Patient was requesting pain medication for her headache. She did note that she typically takes [place] at home but has run out and is not able to get them until Friday. Declined any narcotic pain medication. Patient stable at time of discharge. Case discussed with Dr. Richardson. Undiagnosed new problem with uncertain prognosis? @ -No Drug Therapy requiring intensive monitoring for toxicity (Heparin, Nitro, Insulin, Cardizem)? @ -No Were any procedures done? @ -No Diagnosis/symptom? @ -Viral URI Acute, or Chronic, or Acute on Chronic? @ -Acute Uncomplicated (without systemic symptoms) or Complicated (systemic symptoms)? @ -Uncomplicated Side effects of treatment? @ -No Exacerbation, Progression, or Severe Exacerbation? @ -No Poses a threat to life or bodily function? How? (Chest pain, [place], [place], pneumonia, PE, COPD, DKA, ARF, appy, cholecystitis, CVA, Diverticulitis, Homicidal, Suicidal, threat to staff... and all critical care pts) @ -No - Lab Data Lab Results 02/01/24 Range/Units 18:40 Influenza Type A (PCR) Not Detected (Not Detectd) Influenza Type B (PCR) Not Detected (Not Detectd) RSV (PCR) Not Detected (Not Detectd) SARS-CoV-2 (PCR) Not Detected (Not Detectd) Disposition Clinical Impression: Viral infection Disposition: HOME SELF-CARE Condition: Stable Instructions (If sedation given, give patient instructions): Upper Respiratory Infection (ED) Additional Instructions: Please follow up with your primary care provider. Return to the emergency department for new or worsening symptoms. Prescriptions: Benzonatate 100 mg PO TID #15 cap Is patient prescribed a controlled substance at d/c from ED?: No Referrals: Kartik Presley DO [REFERRING] - 1-2 days
[2024-02-01 18:39] VITALS: BP 121/84; PULSE 75; RESP 16; TEMP 98.3
--- NOTE | 2024-02-01 20:14 | XR ---
EXAMINATION TYPE: XR chest 2V DATE OF EXAM: 02/01/2024 6:55 PM CLINICAL INDICATION:Female, 33 years old with history of cough; [facility] COMPARISON: 08/21/2017 TECHNIQUE: XR chest 2V. Frontal and lateral views of the chest.. FINDINGS: Lines/Tubes/Devices: No indwelling lines are seen. Heart/mediastinum: Heart size is normal. Mediastinum appears normal. Pulmonary vascularity: Not increased, Lungs/Pleura: There is no evidence of pleural effusion, focal consolidation, or pneumothorax. A coup le of small nodular densities project over the right lower lobe, these were probably present before b ut currently better seen. Musculoskeletal: No acute osseous abnormality demonstrated in the limits of the exam. There is fixat ion hardware in the lower cervical spine. Other findings: None. IMPRESSION: 1. No acute cardiopulmonary abnormality. 2. Small nodular densities over the right lower lobe. Recommend correlation with nonemergent outpati ent low-dose CT chest for further evaluation.
== END 2024-02-01 20:14 | disposition home or self-care (01) ==
LOC: EC 18:15
DX: B34.9 Viral infection, unspecified (principal); J45.909 Unspecified asthma, uncomplicated; F12.90 Cannabis use, unspecified, uncomplicated; Z87.891 Personal history of nicotine dependence
CPT/HCPCS: 71046; 87636; 99285

== ENCOUNTER → 2024-06-03 | Outpatient (CLI) | payer OTHER ==
--- NOTE | 2024-06-03 11:43 | MR ---
MRI brain without contrast. HISTORY: Chiari malformation, bilateral occipital neuralgia and migraines COMPARISON: 09/26/2021 TECHNIQUE: Multiecho multiplanar images the brain were obtained without contra st. FINDINGS: Cerebellar tonsils projects mildly below the level of the foramen magnum consistent with a Chiari mal formation, unchanged compared to previous. Otherwise the midline structures and the T1-weighted sagit evette images are normal. The ventricles, basal cisterns and sulci over the convexities are within normal limits and there is n o mass effect or shift of the midline structures. No abnormal signal intensity is seen throughout the brain parenchyma. Based on the diffusion-weighted images, there is no diffusion restriction or acute ischemic event. The posterior fossa including the brainstem, fourth ventricle and cerebellar pontine angles appear no rmal. The intraorbital contents appear normal and symmetric. Visualized paranasal sinuses and mastoid air c ells are well aerated. IMPRESSION: Stable mild Chiari malformation with no significant interval change. No new abnormality seen. No significant abnormality seen.
== END | disposition home or self-care (01) ==
LOC: RADMRIMAIN 08:18
PROVIDERS: ATTEND Psychiatry & Neurology Neurology
DX: M54.81 Occipital neuralgia (principal); G43.009 Migraine without aura, not intractable, without status migrainosus; G93.5 Compression of brain
CPT/HCPCS: 70551

== ENCOUNTER 2024-06-21 14:36 | Emergency (ER) | payer OTHER ==
[2024-06-21] MEDS ORDERED: HYDROcodone/APAP 7.5-325MG 1 EACH TAB ONE (16:43)
[2024-06-21] MEDS ORDERED: ONDANSETRON ODT 4 MG TAB ONE (16:43)
[2024-06-21] MEDS ORDERED: KETOROLAC 15 MG/ML 1 ML VIAL ONE ×2 (16:43→20:26)
[2024-06-21] MEDS ORDERED: SODIUM CHLORIDE 0.9% 1,000 ML BAG ONE (16:55)
[2024-06-21] MEDS ORDERED: ACET/COD 300 MG/30 MG STARTER PACK 6 TAB BTL PO ONE (20:26)
--- NOTE | 2024-07-22 18:30 | US ---
Site ID [facility] Faye Parry ID [id number] Age/Gender: 33Y, O Order # N/A Procedure US Transvaginal Date 06/21/2024 5:19:00 PM EXAMINATION TYPE: US transvaginal DATE OF EXAM: 07/04/2024 COMPARISON: NONE CLINICAL INDICATION: 33 year old with history of heavy bleeding, cramping on menses. TECHNIQUE: Transvaginal (TV). Endovaginal sonographic images of the pelvis were acquired. Date of LMP: 06/21/2024 EXAM MEASUREMENTS: Uterus: 10.2 x 5.2 x 6.7 cm cm Endometrial Stripe: 0.6 cm Right Ovary: 2.1 x 2.9 x 1.5 cm Left Ovary: 2.8 x 3.5 x 2.8 cm 1. Uterus: Retroverted. Heterogenous echotexture. 1.8 x 1.3 x 1.4 cm hypoechoic area. This demonstra kelli internal color flow and is most consistent with an intramural fibroid. 2. Endometrium: wnl 3. Right Ovary: wnl 4. Left Ovary: Corpus luteum identified measuring 2.6 x 3.0 x 2.1 cm with peripheral vascular flow. Spectral, color and waveform doppler imaging shows good arterial and venous flow within the ovaries ; there is no evidence for ovarian torsion. 5. Bilateral Adnexa: Simple appearing fluid adjacent to the left ovary. 6. Posterior cul-de-sac: wnl IMPRESSION: 1. Normal thickness endometrium. 2. Fibroid changes of the uterus. 3. Simple appearing fluid adjacent to left ovary. This may be physiologic versus sequelae of ruptured cyst.
== END 2024-06-21 20:30 | disposition home or self-care (01) ==
LOC: EC 14:36
DX: N83.292 Other ovarian cyst, left side (principal)
CPT/HCPCS: 76830; 93975; 96374; 96375; 99284

== ENCOUNTER → 2024-09-10 | Outpatient (CLI) | payer OTHER ==
--- NOTE | 2024-09-10 17:52 | MR ---
EXAMINATION TYPE: MR lumbar spine wo con DATE OF EXAM: 09/10/2024 COMPARISON: 01/21/2013 HISTORY: 34-year-old female Low back pain, M54.50 LOW BACK PAIN,R20.8 OTHER DISTURBANCES OF S TECHNIQUE: Multiplanar, multisequence images of the lumbar spine were acquired without IV contrast. FINDINGS: Interval fusion hardware placed at L4-S1 with mature interbody ankylosis noted now L5-S1 where there is a fixed grade 3 anterolisthesis. While the degree of anterolisthesis causes deformity of the spina l canal, no significant spinal canal compromise is seen. Findings in keeping with spondylolisthesis f rom previous pars interarticularis defects. Moderate degenerative disc disease redemonstrated L4-L5 with desiccated and bulging disc. Posterior a nnular fissure noted. Severe bilateral neuroforaminal stenoses L5-S1 Moderate right and mild left neural foraminal stenosis L4-L5. Conus medullaris is normal. Vertebral body heights preserved. No suspicious bone marrow replacement. Unchanged small superior endplate Schmorl's nodes T12 and L1 v ertebra. Uterus appears retroflexed with a right posterior uterine body fibroid measuring 1.6 cm possibly with a small submucosal component. IMPRESSION: 1. Interval placement L4-S1 posterior lumbar fusion hardware for the grade 3 anterolisthesis at L5-S1 due to L5 spondylolysis. Mature interbody bony bridging has formed across L5-S1. No spinal canal jeffrey nosis. 2. However, there is severe bilateral L5-S1 neuroforaminal stenosis. 3. Moderate degenerative disc disease L4-L5 with desiccated and bulging disc and posterior annular fi ssure. Moderate right and mild left neuroforaminal stenosis here similar to prior exam. [facility], , 09/10/2024 5:50 PM
== END | disposition home or self-care (01) ==
LOC: RADMRIMAIN 11:41
PROVIDERS: ATTEND Psychiatry & Neurology Neurology
DX: M43.17 Spondylolisthesis, lumbosacral region (principal); M48.061 Spinal stenosis, lumbar region without neurogenic claudication; M51.369 Other intervertebral disc degeneration, lumbar region without mention of lumbar back pain or lower extremity pain; R20.8 Other disturbances of skin sensation
CPT/HCPCS: 72148

== ENCOUNTER 2024-10-08 11:31 | Emergency (ER) | payer OTHER ==
[2024-10-08 11:44] VITALS: TEMP 98.3
--- NOTE | 2024-10-08 12:37 | ED ---
Skin/Abscess/FB HPI - General Chief complaint: Skin/Abscess/Foreign Body Stated complaint: Neck/Head Abscess Time Seen by Provider: 10/08/24 12:34 Source: patient, RN notes reviewed Mode of arrival: ambulatory Limitations: no limitations - History of Present Illness Initial comments: 34-year-old female presenting to the ER with lump on left neck x 1 day. States last night she noticed she had a painful lump on the left neck that is painful to touch. Denies sore throat, fevers, chills. Has also had a headache since this morning that she has been taking [place] for with little relief. States she does have a history of migraines and this feels similar. Denies personal history of cancer. - Related Data Home Medications Medication Instructions Recorded Confirmed Dextroamphetamine/Amphetamine 20 mg PO BID 11/07/22 11/13/22 [Adderall] HYDROcodone/APAP 7.5-325MG [[place] 1 tab PO BID PRN 11/07/22 11/13/22 7.5-325] Naproxen [Naprosyn] 500 mg PO DIRECTED PRN 11/07/22 11/13/22 Ondansetron [Zofran] 4 mg PO Q8HR PRN 11/07/22 11/13/22 Rimegepant Sulfate [Nurtec Odt] 75 mg PO DIRECTED 11/07/22 11/13/22 Topiramate [Topamax] 100 mg PO DIRECTED 11/07/22 11/13/22 Escitalopram [Lexapro] 5 mg PO DAILY 11/13/22 11/13/22 Previous Rx's Medication Instructions Recorded Ibuprofen [Motrin] 800 mg PO Q8H PRN 7 Days #21 tab 08/01/18 HYDROcodone/APAP 7.5-325MG [[place] 1 tab PO Q6HR PRN 3 Days #12 tab 11/13/22 7.5-325] Hydrocortisone Cream 1 applic TOPICAL BID 5 Days #28 gm 11/25/23 [Hydrocortisone 2.5% Cream] Benzonatate 100 mg PO TID #15 cap 02/01/24 Promethazine/Dextromethorphan 5 ml PO Q4-6H PRN #473 ml 02/02/24 [Promethazine-Dm Syrup] Allergies Allergy/AdvReac Type Severity Reaction Status Date / Time No Known Allergies Allergy Verified 10/08/24 11:40 Review of Systems ROS Statement: Those systems with pertinent positive or pertinent negative responses have been documented in the HPI. ROS Other: All systems not noted in ROS Statement are negative. Past Medical History Past Medical History: Asthma Additional Past Medical History / Comment(s): chronic back pain grade 4 slipped disc, migraines History of Any Multi-Drug Resistant Organisms: None Reported Past Surgical History: Back Surgery Additional Past Surgical History / Comment(s): two rods in lower back with screws, 11/13/22 C5-C6 anterior cervical decompression Past Anesthesia/Blood Transfusion Reactions: No Reported Reaction Additional Past Anesthesia/Blood Transfusion Reaction / Comment(s): ONLY WISDOM TEETH REMOVED. Past Psychological History: ADD/ADHD Smoking Status: Former smoker Past Alcohol Use History: None Reported Past Drug Use History: Marijuana - Past Family History Mother Family Medical History: No Reported History General Exam Limitations: no limitations General appearance: alert, in no apparent distress Head exam: Present: atraumatic, normocephalic, normal inspection Eye exam: Present: normal appearance, PERRL, EOMI. Absent: scleral icterus, conjunctival injection, periorbital swelling ENT exam: Present: normal exam, normal oropharynx, mucous membranes moist Neck exam: Present: tenderness. Absent: normal inspection (3 x 3 cm painful mass present in left neck, no erythema or overlying skin changes), meningismus, lymphadenopathy, thyromegaly Respiratory exam: Present: normal lung sounds bilaterally. Absent: respiratory distress, wheezes, rales, rhonchi, stridor Cardiovascular Exam: Present: regular rate, normal rhythm, normal heart sounds. Absent: systolic murmur, diastolic murmur, rubs, gallop, clicks Neurological exam: Present: alert, oriented X3, CN II-XII intact Psychiatric exam: Present: normal affect, normal mood Skin exam: Present: warm, dry, intact, normal color. Absent: rash Course Vital Signs 10/08/24 10/08/24 11:40 15:56 Temperature 98.3 F Pulse Rate 70 65 Respiratory 20 16 Rate Blood Pressure 125/80 112/60 O2 Sat by Pulse 100 98 Oximetry Medical Decision Making - Medical Decision Making Was pt. sent in by a medical professional or institution (, PA, HOME HEALTH CARE SOCIAL WORKER, urgent care, hospital, or group home...) When possible be specific @ -No Did you speak to anyone other than the patient for history (EMS, parent, family, police, friend...)? What history was obtained from this source @ -No Did you review nursing and triage notes (agree or disagree)? Why? @ -I reviewed and agree with nursing and triage notes Were old charts reviewed (outside hosp., previous admission, EMS record, old EKG, old radiological studies, urgent care reports/EKG's, group home records)? Report findings @ -No old charts were reviewed Differential Diagnosis (chest pain, altered mental status, abdominal pain women, abdominal pain men, vaginal bleeding, weakness, fever, dyspnea, syncope, headache, dizziness, GI bleed, back pain, seizure, CVA, palpatations, mental health, musculoskeletal)? @ -Differential Musculoskeletal Lymphadenopathy, muscular strain, contusion, ligament sprain, fracture, arthritis, septic arthritis, bursitis, cellulitis, muscle spasm, nerve com pression, DVT, arterial occlusion, herpes zoster, electrolyte abnormality, tumor.... This is not meant to be in all inclusive list EKG interpreted by me (3pts min.). @ -None X-rays interpreted by me (1pt min.). @ -None done CT interpreted by me (1pt min.). @ -CT neck reveals abnormal nonspecific enlarged left supraclavicular lymph nodes concerning for malignancy U/S interpreted by me (1pt. min.). @ -None done What testing was considered but not performed or refused? (CT, X-rays, U/S, labs)? Why? @ -None What meds were considered but not given or refused? Why? @ -None Did you discuss the management of the patient with other professionals (professionals i.e. , PA, HOME HEALTH CARE SOCIAL WORKER, lab, RT, psych nurse, social science professor, form raiser, teacher, armored vehicle officer, home health care case manager)? Give summary @ -No Was smoking cessation discussed for >3mins.? @ -No Was critical care preformed (if so, how long)? @ -No Were there social determinants of health that impacted care today? How? (Homelessness, low income, unemployed, alcoholism, drug addiction, transportation, low edu. Level, literacy, decrease access to med. care, penitentiary, rehab)? @ -No Was there de-escalation of care discussed even if they declined (Discuss DNR or withdrawal of care, Hospice)? DNR status @ -No What co-morbidities impacted this encounter? (DM, HTN, Smoking, COPD, CAD, Cancer, CVA, ARF, Chemo, Hep., AIDS, mental health diagnosis, sleep apnea, morbid obesity)? @ -None Was patient admitted / discharged? Hospital course, mention meds given and route, prescriptions, significant lab abnormalities, going to OR and other pertinent info. @ -Discharged. This is a 34-year-old female presenting with lump in left neck x 1 day. No red flag symptoms. Vital signs are within acceptable limits. Physical examination remarkable for 3 x 3 cm mass present in left neck. No overlying skin changes or sign of infection. CT neck revealed abnormal nonspecific enlarged left supraclavicular lymph nodes concern for malignancy. Results were discussed with patient in detail. All questions answered at bedside. Advised to follow-up with oncology as soon as possible. Appropriate return precautions discussed and patient is agreeable to plan. Case was discuss ed with my ED attending Dr. Knight. Undiagnosed new problem with uncertain prognosis? @ -No Drug Therapy requiring intensive monitoring for toxicity (Heparin, Nitro, Insulin, Cardizem)? @ -No Were any procedures done? @ -No Diagnosis/symptom? @ -Supraclavicular lymphadenopathy Acute, or Chronic, or Acute on Chronic? @ -Acute Uncomplicated (without systemic symptoms) or Complicated (systemic symptoms)? @ -Uncomplicated Side effects of treatment? @ -No Exacerbation, Progression, or Severe Exacerbation? @ -No Poses a threat to life or bodily function? How? (Chest pain, [place], [place], pneumonia, PE, COPD, DKA, ARF, appy, cholecystitis, CVA, Diverticulitis, Homicidal, Suicidal, threat to staff... and all critical care pts) @ -Possibly - Lab Data Result diagrams: 10/08/24 12:59 10/08/24 12:59 Lab Results 10/08/24 10/08/24 10/08/24 Range/Units 12:59 12:59 12:59 WBC 6.7 (3.8-10.6) k/uL RBC 4.37 (3.80-5.40) m/uL Hgb 13.3 (11.4-16.0) gm/dL Hct 39.0 (34.0-46.0) % MCV 89.4 (80.0-100.0) fL MCH 30.4 (25.0-35.0) pg MCHC 34.0 (31.0-37.0) g/dL RDW 12.2 (11.5-15.5) % Plt Count 218 (150-450) k/uL MPV 6.7 Neutrophils % 73 % Lymphocytes % 17 % Monocytes % 7 % Eosinophils % 2 % Basophils % 0 % Neutrophils # 4.9 (1.3-7.7) k/uL Lymphocytes # 1.1 (1.0-4.8) k/uL Monocytes # 0.4 (0-1.0) k/uL Eosinophils # 0.1 (0-0.7) k/uL Basophils # 0.0 (0-0.2) k/uL Sodium 137 (137-145) mmol/L Potassium 3.9 (3.5-5.1) mmol/L Chloride 112 H (98-107) mmol/L Carbon Dioxide 23 (22-30) mmol/L Anion Gap 2 mmol/L BUN 11 (7-17) mg/dL Creatinine 0.61 (0.52-1.04) mg/dL Est GFR (CKD-EPI)AfAm >90 (>60 ml/min/1.73 sqM) Est GFR (CKD-EPI)NonAf >90 (>60 ml/min/1.73 sqM) Glucose 110 H (74-99) mg/dL Calcium 8.2 L (8.4-10.2) mg/dL Total Bilirubin 0.4 (0.2-1.3) mg/dL AST 22 (14-36) U/L ALT 16 (4-34) U/L Alkaline Phosphatase 47 (38-126) U/L Total Protein 5.0 L (6.3-8.2) g/dL Albumin 3.0 L (3.5-5.0) g/dL Urine HCG, Qual Not Detected (Not Detectd) Disposition Clinical Impression: Supraclavicular lymphadenopathy Disposition: HOME SELF-CARE Condition: Stable Instructions (If sedation given, give patient instructions): Lymphadenopathy (ED) Additional Instructions: Follow-up with Dr. Chapman for further workup. Please return to the Emergency Department if symptoms worsen or any other concerns. Is patient prescribed a controlled substance at d/c from ED?: Yes If prescribed controlled substance>3 days was MAPS reviewed?: Prescribed <3 Days Referrals: Kristofer Presley DO [Primary Care Provider] - 1-2 days Adrian Chapman [STAFF PHYSICIAN] - 1-2 days Time of Disposition: 15:44
[2024-10-08] MEDS: MORPHINE SULFATE 4 MG/ML SYRINGE IVP STA (13:04)
[2024-10-08] MEDS: SODIUM CHLORIDE 0.9% 1,000 ML IV STA (13:05)
[2024-10-08 13:22] LABS: Basophils % (A) 0 %; Eosinophils # (A) 0.1 k/uL (0-0.7); Eosinophils % (A) 2 %; HGB 13.3 gm/dL (11.4-16.0); Lymphocytes # (A) 1.1 k/uL (1.0-4.8); Lymphocytes % (A) 17 %; MCH 30.4 pg (25.0-35.0); MCV 89.4 fL (80.0-100.0); Mean Platelet Volume 6.7; Monocytes # (A) 0.4 k/uL (0-1.0); Monocytes % (A) 7 %; Neutrophils # (A) 4.9 k/uL (1.3-7.7); Neutrophils % (A) 73 %; Platelet Count 218 k/uL (150-450); RBC 4.37 m/uL (3.80-5.40); RDW 12.2 % (11.5-15.5); WBC 6.7 k/uL (3.8-10.6)
[2024-10-08 13:35] LABS: ALT 16 U/L (4-34); AST 22 U/L (14-36); African American GFR (CKD) >90 (>60 ml/min/1.73 sqM); Alkaline Phosphatase 47 U/L (38-126); Anion Gap 2 mmol/L; Blood Urea Nitrogen 11 mg/dL (7-17); Calcium 8.2 mg/dL (8.4-10.2); Carbon Dioxide 23 mmol/L (22-30); Chloride 112 mmol/L (98-107); Glucose 110 mg/dL (74-99); Non-African American GFR(CKD) >90 (>60 ml/min/1.73 sqM); Potassium 3.9 mmol/L (3.5-5.1); Sodium 137 mmol/L (137-145); Total Bilirubin 0.4 mg/dL (0.2-1.3)
[2024-10-08] MEDS: ONDANSETRON 4 MG/2 ML VIAL IVP STA (13:43)
--- NOTE | 2024-10-08 14:29 | CT ---
EXAMINATION TYPE: CT soft tissue neck w con CT DLP: 246 mGycm, Automated exposure control for dose reduction was used. DATE OF EXAM: 10/08/2024 2:08 PM COMPARISON: Cervical spine radiograph 11/13/2022, MR cervical spine 11/24/2021. CLINICAL INDICATION:Female, 34 years old with history of right neck mass; PHH, lump left side of neck TECHNIQUE: Standard enhanced CT of the neck following intravenous administration of 100 cc of Isovue 300. Axial sections with coronal and sagittal reformats were obtained. FINDINGS: Brain: Visualized portions are grossly unremarkable. Orbits: Unremarkable Sinuses: Grossly unremarkable. Suprahyoid Neck: The oropharynx, oral cavity, parapharyngeal and retropharyngeal spaces are clear and symmetric. The nasopharynx is unremarkable. Infrahyoid Neck: The larynx, hypopharynx, and supraglottic area are clear and symmetric. Parotid Glands: Unremarkable. Submandibular Glands: Unremarkable. Musculoskeletal: No acute osseous pathology. Incomplete fusion of the posterior arch of C1. Postsurgi evelyn changes from anterior cervical fusion with disc spacer at C5-C6. Lymph nodes: Enlarged left supraclavicular lymph node measuring up to 1.7 cm with adjacent additional mildly enlarged lymph nodes measuring up to 1.2 cm. No other pathologically enlarged lymph nodes dirk ntified. Vascular structures: Visualized major arteries are patent without evidence of aneurysm. Thoracic Inlet/airway: Airway is patent. The lung apices are clear. Soft tissues/Thyroid: Thyroid and remainder of the soft tissues are unremarkable. Other: none. IMPRESSION Abnormal nonspecific enlarged left supraclavicular lymph nodes. Raises concern for possible malignanc y. Further workup is recommended. [facility], , 10/08/2024 2:26 PM
[2024-10-08] MEDS: ACET/COD 300 MG/30 MG STARTER PACK 6 TAB BTL PO STA (15:53)
[2024-10-08 15:57] VITALS: BP 112/60; PULSE 65; RESP 16
== END 2024-10-08 15:57 | disposition home or self-care (01) ==
LOC: EC 11:31
DX: R59.0 Localized enlarged lymph nodes (principal); Z87.891 Personal history of nicotine dependence
CPT/HCPCS: 36415; 80053; 85025; 81025; 70491; 99284; 96374; 96375; 96361; J2270; J2405; Q9967

== ENCOUNTER 2024-10-15 09:06 | Emergency (ER) | payer OTHER ==
[2024-10-15 09:14] VITALS: PULSE 65; TEMP 98.1
--- NOTE | 2024-10-15 09:53 | ED ---
Neck Injury/Pain HPI - General Chief Complaint: Neck Pain/Injury Stated Complaint: Neck pain Time Seen by Provider: 10/15/24 09:22 Source: patient, RN notes reviewed, old records reviewed Mode of arrival: ambulatory Limitations: no limitations - History of Present Illness Initial Comments: 34-year-old female presents emergency department with chief complaint of left- sided neck pain and swelling. Patient was seen here on the day had CAT scan showing enlarged lymph node concerning for malignancy. Patient follow-up with Dr. Jones on Friday schedule for biopsy next . He told patient that the area was increasing and she had 4 notable lymph nodes now. Patient's had no infectious causes patient denies sore throat fever congestion she does complain of some generalized malaise type feeling. She does deal with chronic back pain and neck pain which she has had surgery by Dr. Crowe she is on [place] 7.5. She states is not currently helping the pain she did contact oncology advised her to come Emergency Department. - Related Data Home Medications Medication Instructions Recorded Confirmed Dextroamphetamine/Amphetamine 20 mg PO BID 11/07/22 11/13/22 [Adderall] HYDROcodone/APAP 7.5-325MG [[place] 1 tab PO BID PRN 11/07/22 11/13/22 7.5-325] Naproxen [Naprosyn] 500 mg PO DIRECTED PRN 11/07/22 11/13/22 Ondansetron [Zofran] 4 mg PO Q8HR PRN 11/07/22 11/13/22 Rimegepant Sulfate [Nurtec Odt] 75 mg PO DIRECTED 11/07/22 11/13/22 Topiramate [Topamax] 100 mg PO DIRECTED 11/07/22 11/13/22 Escitalopram [Lexapro] 5 mg PO DAILY 11/13/22 11/13/22 Previous Rx's Medication Instructions Recorded Ibuprofen [Motrin] 800 mg PO Q8H PRN 7 Days #21 tab 08/01/18 HYDROcodone/APAP 7.5-325MG [[place] 1 tab PO Q6HR PRN 3 Days #12 tab 11/13/22 7.5-325] Hydrocortisone Cream 1 applic TOPICAL BID 5 Days #28 gm 11/25/23 [Hydrocortisone 2.5% Cream] Benzonatate 100 mg PO TID #15 cap 02/01/24 Promethazine/Dextromethorphan 5 ml PO Q4-6H PRN #473 ml 02/02/24 [Promethazine-Dm Syrup] Allergies Allergy/AdvReac Type Severity Reaction Status Date / Time steroids Allergy Unknown Uncoded 10/15/24 09:09 Review of Systems ROS Statement: Those systems with pertinent positive or pertinent negative responses have been documented in the HPI. ROS Other: All systems not noted in ROS Statement are negative. Past Medical History Past Medical History: Asthma, Cancer Additional Past Medical History / Comment(s): chronic back pain grade 4 slipped disc, migraines History of Any Multi-Drug Resistant Organisms: None Reported Past Surgical History: Back Surgery Additional Past Surgical History / Comment(s): two rods in lower back with screws, 11/13/22 C5-C6 anterior cervical decompression Past Anesthesia/Blood Transfusion Reactions: No Reported Reaction Additional Past Anesthesia/Blood Transfusion Reaction / Comment(s): ONLY WISDOM TEETH REMOVED. Past Psychological History: ADD/ADHD Smoking Status: Former smoker Past Alcohol Use History: None Reported Past Drug Use History: Marijuana - Past Family History Mother Family Medical History: No Reported History General Exam Limitations: no limitations General appearance: alert, in no apparent distress Head exam: Present: atraumatic, normocephalic, normal inspection Eye exam: Present: normal appearance, PERRL, EOMI. Absent: scleral icterus, conjunctival injection, periorbital swelling ENT exam: Present: normal exam, normal oropharynx, mucous membranes moist, TM's normal bilaterally Neck exam: Present: normal inspection, full ROM, lymphadenopathy (Lymphadenopathy on the left, tenderness with palpation). Absent: tenderness, meningismus Respiratory exam: Present: normal lung sounds bilaterally. Absent: respiratory distress, wheezes, rales, rhonchi, stridor Cardiovascular Exam: Present: regular rate, normal rhythm, normal heart sounds. Absent: systolic murmur, diastolic murmur, rubs, gallop, clicks Course Vital Signs 10/15/24 09:09 Temperature 98.1 F Pulse Rate 65 Respiratory 18 Rate Blood Pressure 131/82 O2 Sat by Pulse 100 Oximetry Medical Decision Making - Medical Decision Making Was pt. sent in by a medical professional or institution (, PA, RAIL CAR UNLOADER, urgent care, hospital, or retirement...) When possible be specific @ -No Did you speak to anyone other than the patient for history (EMS, parent, family, police, friend...)? What history was obtained from this source @ -No Did you review nursing and triage notes (agree or disagree)? Why? @ -I reviewed and agree with nursing and triage notes Were old charts reviewed (outside hosp., previous admission, EMS record, old EKG, old radiological studies, urgent care reports/EKG's, retirement records)? Report findings @ -Reviewed CT at the end of September. Differential Diagnosis (chest pain, altered mental status, abdominal pain women, abdominal pain men, vaginal bleeding, weakness, fever, dyspnea, syncope, headache, dizziness, GI bleed, back pain, seizure, CVA, palpatations, mental health, musculoskeletal)? @ -Lymphoma, lymphadenopathy, mono, strep EKG interpreted by me (3pts min.). @ -None X-rays interpreted by me (1pt min.). @ -None done CT interpreted by me (1pt min.). @ -None done U/S interpreted by me (1pt. min.). @ -None done What testing was considered but not performed or refused? (CT, X-rays, U/S, labs)? Why? @ -None What meds were considered but not given or refused? Why? @ -None Did you discuss the management of the patient with other professionals (professionals i.e. , PA, RAIL CAR UNLOADER, lab, RT, psych nurse, case management social worker, toolman, teacher, medical officer psychiatry, senior case manager)? Give summary @ -Discussed case with oncology Philip Ingram regarding patient's current complaints of increased pain meds and follow-up in office. Patient scheduled for biopsy . Was smoking cessation discussed for >3mins.? @ -No Was critical care preformed (if so, how long)? @ -No Were there social determinants of health that impacted care today? How? (Homelessness, low income, unemployed, alcoholism, drug addiction, transportation, low edu. Level, literacy, decrease access to med. care, fpc, rehab)? @ -No Was there de-escalation of care discussed even if they declined (Discuss DNR or withdrawal of care, Hospice)? DNR status @ -No What co-morbidities impacted this encounter? (DM, HTN, Smoking, COPD, CAD, Cancer, CVA, ARF, Chemo, Hep., AIDS, mental health diagnosis, sleep apnea, morbid obesity)? @ -None Was patient admitted / discharged? Hospital course, mention meds given and route, prescriptions, significant lab abnormalities, going to OR and other pertinent info. @ -Discharge patient provided analgesics. Patient has appointment for biopsy she may increase her pain meds and follow-up with oncology for further pain meds. Undiagnosed new problem with uncertain prognosis? @ -No Drug Therapy requiring intensive monitoring for toxicity (Heparin, Nitro, Insulin, Cardizem)? @ -No Were any procedures done? @ -No Diagnosis/symptom? @ -Lymphadenopathy, neck pain Acute, or Chronic, or Acute on Chronic? @ -Acute Uncomplicated (without systemic symptoms) or Complicated (systemic symptoms)? @ -Uncomplicated Side effects of treatment? @ -No Exacerbation, Progression, or Severe Exacerbation? @ -No Poses a threat to life or bodily function? How? (Chest pain, [place], [place], pneumonia, PE, COPD, DKA, ARF, appy, cholecystitis, CVA, Diverticulitis, Homicidal, Suicidal, threat to staff... and all critical care pts) @ -No - Lab Data Result diagrams: 10/15/24 10:21 10/15/24 09:42 Lab Results 10/15/24 10/15/24 10/15/24 Range/Units 09:42 09:42 09:42 WBC (3.8-10.6) k/uL RBC (3.80-5.40) m/uL Hgb (11.4-16.0) gm/dL Hct (34.0-46.0) % MCV (80.0-100.0) fL MCH (25.0-35.0) pg MCHC (31.0-37.0) g/dL RDW (11.5-15.5) % Plt Count (150-450) k/uL MPV Neutrophils % % Lymphocytes % % Monocytes % % Eosinophils % % Basophils % % Neutrophils # (1.3-7.7) k/uL Lymphocytes # (1.0-4.8) k/uL Monocytes # (0-1.0) k/uL Eosinophils # (0-0.7) k/uL Basophils # (0-0.2) k/uL Sodium 136 L (137-145) mmol/L Potassium 5.1 (3.5-5.1) mmol/L Chloride 109 H (98-107) mmol/L Carbon Dioxide 23 (22-30) mmol/L Anion Gap 4 mmol/L BUN 10 (7-17) mg/dL Creatinine 0.58 (0.52-1.04) mg/dL Est GFR (CKD-EPI)AfAm >90 (>60 ml/min/1.73 sqM) Est GFR (CKD-EPI)NonAf >90 (>60 ml/min/1.73 sqM) Glucose 96 (74-99) mg/dL Calcium 8.4 (8.4-10.2) mg/dL Total Bilirubin 1.1 (0.2-1.3) mg/dL AST 41 H (14-36) U/L ALT 18 (4-34) U/L Alkaline Phosphatase 51 (38-126) U/L C-Reactive Protein <0.5 (<1.0) mg/dL Total Protein 6.4 (6.3-8.2) g/dL Albumin 3.6 (3.5-5.0) g/dL Heterophile Antibody Negative (Negative) Group A Strep (PCR) NOT DETECTED (Not Detectd) 10/15/24 Range/Units 10:21 WBC 5.5 (3.8-10.6) k/uL RBC 5.09 (3.80-5.40) m/uL Hgb 15.0 (11.4-16.0) gm/dL Hct 45.7 (34.0-46.0) % MCV 89.8 (80.0-100.0) fL MCH 29.4 (25.0-35.0) pg MCHC 32.8 (31.0-37.0) g/dL RDW 12.1 (11.5-15.5) % Plt Count 238 (150-450) k/uL MPV 6.5 Neutrophils % 69 % Lymphocytes % 20 % Monocytes % 6 % Eosinophils % 2 % Basophils % 1 % Neutrophils # 3.8 (1.3-7.7) k/uL Lymphocytes # 1.1 (1.0-4.8) k/uL Monocytes # 0.4 (0-1.0) k/uL Eosinophils # 0.1 (0-0.7) k/uL Basophils # 0.0 (0-0.2) k/uL Sodium (137-145) mmol/L Potassium (3.5-5.1) mmol/L Chloride (98-107) mmol/L Carbon Dioxide (22-30) mmol/L Anion Gap mmol/L BUN (7-17) mg/dL Creatinine (0.52-1.04) mg/dL Est GFR (CKD-EPI)AfAm (>60 ml/min/1.73 sqM) Est GFR (CKD-EPI)NonAf (>60 ml/min/1.73 sqM) Glucose (74-99) mg/dL Calcium (8.4-10.2) mg/dL Total Bilirubin (0.2-1.3) mg/dL AST (14-36) U/L ALT (4-34) U/L Alkaline Phosphatase (38-126) U/L C-Reactive Protein (<1.0) mg/dL Total Protein (6.3-8.2) g/dL Albumin (3.5-5.0) g/dL Heterophile Antibody (Negative) Group A Strep (PCR) (Not Detectd) Disposition Clinical Impression: Lymphadenopathy, Neck pain Disposition: HOME SELF-CARE Condition: Stable Instructions (If sedation given, give patient instructions): Neck Pain (ED) Additional Instructions: Please return to the Emergency Department if symptoms worsen or any other concerns. Is patient prescribed a controlled substance at d/c from ED?: No Referrals: Kristofer Presley DO [Primary Care Provider] - 1-2 days Time of Disposition: 11:40
[2024-10-15 10:29] LABS: Basophils % (A) 1 %; Eosinophils # (A) 0.1 k/uL (0-0.7); Eosinophils % (A) 2 %; HCT 45.7 % (34.0-46.0); Lymphocytes # (A) 1.1 k/uL (1.0-4.8); Lymphocytes % (A) 20 %; MCH 29.4 pg (25.0-35.0); MCHC 32.8 g/dL (31.0-37.0); MCV 89.8 fL (80.0-100.0); Mean Platelet Volume 6.5; Monocytes # (A) 0.4 k/uL (0-1.0); Monocytes % (A) 6 %; Neutrophils # (A) 3.8 k/uL (1.3-7.7); Neutrophils % (A) 69 %; Platelet Count 238 k/uL (150-450); RBC 5.09 m/uL (3.80-5.40); RDW 12.1 % (11.5-15.5); WBC 5.5 k/uL (3.8-10.6)
[2024-10-15 10:31] LABS: ALT 18 U/L (4-34); African American GFR (CKD) >90 (>60 ml/min/1.73 sqM); Albumin 3.6 g/dL (3.5-5.0); Anion Gap 4 mmol/L; Blood Urea Nitrogen 10 mg/dL (7-17); C Reactive Protein <0.5 mg/dL (<1.0); Calcium 8.4 mg/dL (8.4-10.2); Carbon Dioxide 23 mmol/L (22-30); Chloride 109 mmol/L (98-107); Glucose 96 mg/dL (74-99); Non-African American GFR(CKD) >90 (>60 ml/min/1.73 sqM); Sodium 136 mmol/L (137-145); Total Bilirubin 1.1 mg/dL (0.2-1.3); Total Protein 6.4 g/dL (6.3-8.2)
[2024-10-15 10:53] LABS: AST 41 U/L (14-36); Alkaline Phosphatase 51 U/L (38-126); Potassium 5.1 mmol/L (3.5-5.1)
[2024-10-15] MEDS: KETOROLAC 15 MG/ML 1 ML VIAL IVP STA (11:34)
[2024-10-15] MEDS: HYDROmorphone 0.5 MG/0.5 ML SYRINGE IVP STA (11:34)
[2024-10-15] MEDS: ACET/COD 300 MG/30 MG STARTER PACK 6 TAB BTL PO STA (12:06)
[2024-10-15 12:08] VITALS: BP 129/71; RESP 20
== END 2024-10-15 12:08 | disposition home or self-care (01) ==
LOC: EC 09:06
DX: M54.2 Cervicalgia (principal); R59.1 Generalized enlarged lymph nodes; Z88.8 Allergy status to other drugs, medicaments and biological substances; Z87.891 Personal history of nicotine dependence
CPT/HCPCS: 99284 ×2; 96374 ×2; 96375 ×2; 36415; 87651; 80053; 85025; 86140; 86308; J1885; J1171

== ENCOUNTER → 2024-12-03 | Outpatient (CLI) | payer OTHER | END | disposition home or self-care (01) | LOC: LABWHC1 12:25 | PROVIDERS: ATTEND Family Medicine | DX: R59.1 Generalized enlarged lymph nodes (principal) | CPT/HCPCS: 87529 ==